=== PATIENT | male | born 1965 | race Caucasian/White ===

== ENCOUNTER 2018-02-04 12:43 | Inpatient (IN) | payer MEDICAID, OTHER ==
[~2018-02-04] VITALS: Ht 188 cm; Wt 119.9 kg
[~2018-02-04 12:43] MED LIST: ASPI81TA82 PO; CARV12.5 PO; FURO1TAB93 OR; LISI-360 PO; SPIR25 PO; WARF5 PO
[2018-02-04] MEDS ORDERED: SODIUM CHLOR 0.9% 1000 ML INJ 1,000 ML IV ONE (13:00)
[2018-02-04 13:09] VITALS: BP 104/69; PULSE 86; RESP 18; TEMP 98.9; O2SAT 96
[2018-02-04 13:13] VITALS: BP 104/69; PULSE 89; RESP 18; TEMP 98.9; O2SAT 96
--- NOTE | 2018-02-04 13:22 | PD ---
HPI Chief Complaint: Syncope/Near-Syncope Time Seen by Provider: 12:52 Travel History International Travel<30 days: No Contact w/Intl Traveler<30days: No Traveled to known affect area: No History of Present Illness HPI 52-year-old male that presents to the ED for evaluation of syncope. Patient was brought here by ambulance for evaluation of this. Per patient he was driving when she started feeling dizzy. He had to stop and when he stopped he sat on a bench and then he started feeling more dizzy and then he actually passed out. He denies any his head and he does not know how long he was out. Per patient he is never had this happen before. He does have a history of A. fib and takes multiple medications for blood pressure as well as A. fib. He does take Coumadin. He denies any headache at this time. Per ambulance he was not able to get up on his own and he did not wanted to come. Per patient has been having cough and congestion for the past 2-3 days and believes that this is the cause of his symptoms. He denies any chest pain or palpitations during this whole ordeal. He does tell me that his blood pressure usually runs low in the 90s systolic and he believes is secondary to his blood pressure medications. He has an allergy to codeine. He denies any pain at this time. No diarrhea. No bowel movement or urinary issues. No shortness of breath with exertion. He cannot stand up without feeling dizzy like is in a pass out. PFSH Past Medical History Hx Anticoagulant Therapy: Yes Atrial Fibrillation: Yes Heart Rhythm Problems: Yes (a-fib within last 3 months) Cardiovascular Problems: Yes High Cholesterol: No Chest Pain: Yes (recently experienced chest pain within last 3 months) Congestive Heart Failure: Yes (within last 3 months) Cerebrovascular Accident: Yes Coronary Artery Disease: Yes Diminished Hearing: No Genitourinary: No Hypertension: Yes Reproductive: No Respiratory: No Tetanus Vaccination: Unknown Influenza Vaccination: No Past Surgical History Abdominal Surgery: Yes (hernia surgery X2) Other Surgery: Yes Social History Alcohol Use: No Tobacco Use: No Substance Use: No Allergies-Medications (Allergen,Severity, Reaction): Coded Allergies: codeine (Unverified Allergy, Severe, Anaphylaxis, 05/28/17) Reported Meds & Prescriptions Reported Meds & Active Scripts Active Review of Systems Except as stated in HPI: all other systems reviewed are Neg Physical Exam Narrative GENERAL: SKIN: Warm and dry. HEAD: Atraumatic. Normocephalic. EYES: Pupils equal and round. No scleral icterus. No injection or drainage. ENT: No nasal bleeding or discharge. Mucous membranes pink and moist. NECK: Trachea midline. No JVD. CARDIOVASCULAR: Regular rate and rhythm. RESPIRATORY: No accessory muscle use. Clear to auscultation. Breath sounds equal bilaterally. GASTROINTESTINAL: Abdomen soft, non-tender, nondistended. Hepatic and splenic margins not palpable. MUSCULOSKELETAL: Extremities without clubbing, cyanosis, or edema. No obvious deformities. NEUROLOGICAL: Awake and alert. No obvious cranial nerve deficits. Motor grossly within normal limits. Five out of 5 muscle strength in the arms and legs. Normal speech. PSYCHIATRIC: Appropriate mood and affect; insight and judgment normal. Data Data Last Documented VS Vital Signs Date Time Temp Pulse Resp B/P (MAP) Pulse Ox O2 Delivery O2 Flow Rate FiO2 02/04/18 14:00 84 12 98/53 (68) 92 22 87/56 (66) 94 27 91/56 (68) 02/04/18 13:16 96 Room Air 02/04/18 13:13 98.9 Orders Orders Electrocardiogram (02/04/18 12:57) Complete Blood Count With Diff (02/04/18 12:57) Comprehensive Metabolic Panel (02/04/18 12:57) Ckmb (Isoenzyme) Profile (02/04/18 12:57) Troponin I (02/04/18 12:57) Prothrombin Time / Inr (Pt) (02/04/18 12:57) Act Partial Throm Time (Ptt) (02/04/18 12:57) Blood Culture (02/04/18 12:57) Lipase (02/04/18 12:57) Urinalysis - C+S If Indicated (02/04/18 12:57) Magnesium (Mg) (02/04/18 12:57) Thyroid Stimulating Hormone (02/04/18 12:57) Chest, Single Ap (02/04/18 12:57) Iv Access Insert/Monitor (02/04/18 12:57) Ecg Monitoring (02/04/18 12:57) Oximetry (02/04/18 12:57) Orthostatic Vital Signs (02/04/18 12:57) Sodium Chlor 0.9% 1000 Ml Inj (Ns 1000 M (02/04/18 13:00) Ct Brain W/O Iv Contrast(Rout) (02/04/18 ) Lactic Acid Sepsis Protocol (02/04/18 13:27) CKMB (02/04/18 13:25) CKMB% (02/04/18 13:25) Ventilation & Perfusion Scan (02/04/18 ) Admit To Inpatient (02/04/18 ) Vital Signs (Adult) Q4H (02/04/18 14:58) Activity Oob With Assistance (02/04/18 14:58) Converting Supervisor / Telemetry .CONTINUOUS (02/04/18 14:58) Diet Npo (02/04/18 Dinner) Sodium Chloride 0.9% Flush (Ns Flush) (02/04/18 15:00) Sodium Chloride 0.9% Flush (Ns Flush) (02/04/18 21:00) Basic Metabolic Panel (Bmp) (02/05/18 06:00) Complete Blood Count With Diff (02/05/18 06:00) Creatine Kinase (Cpk) (02/04/18 19:30) Creatine Kinase (Cpk) (02/05/18 01:30) Troponin I (02/04/18 19:30) Troponin I (02/05/18 01:30) Electrocardiogram (02/04/18 19:30) Electrocardiogram (02/05/18 01:30) Case Management Consult (02/04/18 14:58) Naloxone Inj (Narcan Inj) (02/04/18 15:00) Inpatient Certification (02/04/18 ) Consult Cardiology (02/04/18 ) Admit Order (Ed Use Only) (02/04/18 15:13) Labs Laboratory Tests Test 02/04/18 13:20 02/04/18 13:25 02/04/18 13:52 Urine Color LIGHT-YELLOW Urine Turbidity CLEAR Urine pH 5.5 Urine Specific [place] 1.006 Urine Protein NEG mg/dL Urine Glucose (UA) NEG mg/dL Urine Ketones NEG mg/dL Urine Occult Blood NEG Urine Nitrite NEG Urine Bilirubin NEG Urine Urobilinogen LESS THAN 2.0 MG/DL Urine Leukocyte Esterase NEG Urine RBC LESS THAN 1 /hpf Urine WBC LESS THAN 1 /hpf Urine Hyaline Casts 44 /lpf Urine Mucus FEW /lpf Microscopic Urinalysis Comment CULT NOT INDICATED White Blood Count 5.2 TH/MM3 Red Blood Count 4.36 MIL/MM3 Hemoglobin 14.5 GM/DL Hematocrit 42.5 % Mean Corpuscular Volume 97.4 FL Mean Corpuscular Hemoglobin 33.2 PG Mean Corpuscular Hemoglobin Concent 34.1 % Red Cell Distribution Width 14.8 % Platelet Count 202 TH/MM3 Mean Platelet Volume 10.0 FL Neutrophils (%) (Auto) 67.7 % Lymphocytes (%) (Auto) 13.7 % Monocytes (%) (Auto) 16.7 % Eosinophils (%) (Auto) 1.2 % Basophils (%) (Auto) 0.7 % Neutrophils # (Auto) 3.5 TH/MM3 Lymphocytes # (Auto) 0.7 TH/MM3 Monocytes # (Auto) 0.9 TH/MM3 Eosinophils # (Auto) 0.1 TH/MM3 Basophils # (Auto) 0.0 TH/MM3 CBC Comment DIFF FINAL Differential Comment Prothrombin Time 14.4 SEC Prothromb Time International Ratio 1.4 RATIO Activated Partial Thromboplast Time 31.5 SEC Blood Urea Nitrogen 17 MG/DL Creatinine 1.62 MG/DL Random Glucose 102 MG/DL Total Protein 7.3 GM/DL Albumin 3.5 GM/DL Calcium Level 7.8 MG/DL Magnesium Level 1.9 MG/DL Alkaline Phosphatase 51 U/L Aspartate Amino Transf (AST/SGOT) 31 U/L Alanine Aminotransferase (ALT/SGPT) 25 U/L Total Bilirubin 0.7 MG/DL Sodium Level 139 MEQ/L Potassium Level 3.8 MEQ/L Chloride Level 103 MEQ/L Carbon Dioxide Level 26.6 MEQ/L Anion Gap 9 MEQ/L Estimat Glomerular Filtration Rate 45 ML/MIN Total Creatine Kinase 292 U/L Creatine Kinase MB 3.1 NG/ML Troponin I 0.15 NG/ML Lipase 228 U/L Thyroid Stimulating Hormone 3rd Gen 1.970 uIU/ML Lactic Acid Level 1.2 mmol/L [facility] Medical Decision Making Medical Screen Exam Complete: Yes Emergency Medical Condition: Yes Medical Record Reviewed: Yes Interpretation(s) CBC Diagram 02/04/18 13:25 EKG showed atrial fibrillation but no RVR. Heart rate in 80s. BMP Diagram 02/04/18 13:25 Albumin 3.5, Calcium Level 7.8 L, Magnesium Level 1.9, Aspartate Amino Transf ( AST/SGOT) 31, Alanine Aminotransferase (ALT/SGPT) 25 Last Impressions Chest X-Ray 02/04/18 1257 Signed Impressions: Service Date/Time: Sunday, February 04, 2018 13:00 - CONCLUSION: Chronically enlarged cardiac silhouette. No acute cardiopulmonary disease identified. Zion Lemos MD CT head shows chronic changes per radiology but no acute disease troponin elevated at 0.15 CK WNL UA negative Last Impressions Chest X-Ray 02/04/18 1257 Signed Impressions: Service Date/Time: Sunday, February 04, 2018 13:00 - CONCLUSION: Chronically enlarged cardiac silhouette. No acute cardiopulmonary disease identified. Zion Lemos MD Head CT 02/04/18 0000 Signed Impressions: Service Date/Time: Sunday, February 04, 2018 13:40 - CONCLUSION: 1. Chronic changes with a small, old lacunar type infarct in the right frontal parietal watershed area. 2. Minimal chronic sinusitis in a posterior right ethmoid air cell. 3. Nothing acute Jeremías Denis MD Differential Diagnosis Cardiac syncope versus hypotension versus sepsis versus pneumonia versus syncope versus presyncope Narrative Course 52-year-old male that presents to the ED for evaluation of syncope. Patient was properly examined and was found to have signs and symptoms consistent with syncope. Unclear telemetry at this time. No history of this in the past. Patient was found by ambulance to be slightly hypotensive. Labs and imaging ordered. Labs and imaging showed elevated troponin and otherwise unremarkable disease. Chronic changes noted on CT head. Because of patient's syncope and positive troponin recommendations for admission for further eval. patient agrees with plan. Case was discussed with my attending Dr Chowdary who recommends admission as well. Patient was admitted to Dr. Cochran who agrees to admission. Diagnosis Primary Impression: Syncope Qualified Codes: R55 - Syncope and collapse Additional Impression: Elevated troponin Admitting Information Admitting Physician Requests: Nikos Lau Feb 04, 2018 13:22
--- NOTE | 2018-02-04 13:23 | RADRPT ---
EXAM DATE/TIME: 02/04/2018 13:00 [facility] COMPARISON: CHEST SINGLE AP, January 04, 2016, 12:58. INDICATIONS : Syncope. MEDICAL HISTORY : Congestive heart failure. high blood pressure, atrial fibrillation SURGICAL HISTORY : None. ENCOUNTER: Initial ACUITY: 1 day PAIN SCORE: 0/10 LOCATION: Bilateral chest FINDINGS: 2 AP views of the chest. Cardiac silhouette enlargement unchanged. Lungs are clear. No evidence of pl eural effusion or pneumothorax. CONCLUSION: Chronically enlarged cardiac silhouette. No acute cardiopulmonary disease identified. Zion Lemos MD on February 04, 2018 at 13:20 Board Certified Radiologist. This report was verified electronically.
[2018-02-04 13:46] LABS: AUTOMATED NEUTROPHIL # 3.5 TH/MM3 (1.8-7.7); BASOPHIL % 0.7 % (0.0-2.0); EOSINOPHIL # 0.1 TH/MM3 (0-0.4); EOSINOPHIL % 1.2 % (0.0-4.0); HEMATOCRIT 42.5 % (39.0-51.0); HEMOGLOBIN 14.5 GM/DL (13.0-17.0); LYMPH % 13.7 % (9.0-44.0); LYMPHOCYTE # 0.7 TH/MM3 (1.0-4.8); MEAN CELL VOLUME 97.4 FL (80.0-100.0); MEAN CORPUSCULAR HEMOGLOBIN 33.2 PG (27.0-34.0); MEAN CORPUSCULAR HGB CONC 34.1 % (32.0-36.0); MONO % 16.7 % (0.0-8.0); MONOCYTE # 0.9 TH/MM3 (0-0.9); NEUT % 67.7 % (16.0-70.0); PLATELET COUNT 202 TH/MM3 (150-450); RED BLOOD COUNT 4.36 MIL/MM3 (4.50-5.90); RED CELL DISTRIBUTION WIDTH 14.8 % (11.6-17.2); WHITE BLOOD COUNT 5.2 TH/MM3 (4.0-11.0)
[2018-02-04 13:59] LABS: BILIRUBIN, URINE NEG (NEG); BLOOD, URINE NEG (NEG); GLUCOSE,URINE NEG (NEG); HYALINE CAST, URINE 44 /lpf (RARE); KETONE, URINE NEG (NEG); MUCUS URINE FEW /lpf (OCC); NITRITE,URINE NEG (NEG); PH, URINE 5.5 (5.0-8.5); URINE COLOR LIGHT-YELLOW (YELLW/STRAW); URINE LEUKOCYTE ESTERASE NEG (NEG)
[2018-02-04 14:00] VITALS: BP_SYST 87; BP_SYST 91; BP_SYST 98; BP_DIAS 53; BP_DIAS 56; RESP 12; RESP 22; RESP 27
[2018-02-04 14:03] LABS: ALBUMIN 3.5 GM/DL (3.4-5.0); ALT (GPT) 25 U/L (12-78); AST (GOT) 31 U/L (15-37); BICARBONATE 26.6 MEQ/L (21.0-32.0); BLOOD UREA NITROGEN 17 MG/DL (7-18); CALCIUM 7.8 MG/DL (8.5-10.1); CHLORIDE 103 MEQ/L (98-107); CREATININE 1.62 MG/DL (0.60-1.30); GLOMERULAR FILTRATION RATE 45 ML/MIN (>89); GLUCOSE,RANDOM 102 MG/DL (74-106); INTERNATIONAL NORMALIZED RATIO 1.4 RATIO; MAGNESIUM 1.9 MG/DL (1.5-2.5); PROTHROMBIN TIME - PATIENT 14.4 SEC (9.8-11.6); SODIUM (NA) 139 MEQ/L (136-145)
--- NOTE | 2018-02-04 14:06 | RADRPT ---
EXAM DATE/TIME: 02/04/2018 13:40 [facility] COMPARISON: No previous studies available for comparison. INDICATIONS : Syncope. RADIATION DOSE: 34.40 CTDIvol (mGy) MEDICAL HISTORY : Cardiovascular disease. Hypertension. SURGICAL HISTORY : None. ENCOUNTER: Initial ACUITY: 1 day PAIN SCALE: 0/10 LOCATION: cranial TECHNIQUE: Multiple contiguous axial images were obtained of the head. Using automated exposure control and adjustment of the mA and/or kV according to patient size, radiation dose was kept as low as reasonably achievable to obtain optimal diagnostic quality images. DICOM format image data is av ailable electronically for review and comparison. FINDINGS: CEREBRUM: The ventricles are normal for age. No evidence of midline shift, mass lesion, hemorrha ge or acute infarction. Old lacunar type infarct in the right frontoparietal watershed distribution. No extra-axial fluid collections are seen. POSTERIOR FOSSA: The cerebellum and brainstem are intact. The 4th ventricle is midline. The cer ebellopontine angle is unremarkable. EXTRACRANIAL: The visualized portion of the orbits is intact. Mucoperiosteal thickening isolated to a posterior ethmoid air cell on the right SKULL: The calvaria is intact. No evidence of skull fracture. CONCLUSION: 1. Chronic changes with a small, old lacunar type infarct in the right frontal parietal watershed are a. 2. Minimal chronic sinusitis in a posterior right ethmoid air cell. 3. Nothing acute Jeremías Denis MD on February 04, 2018 at 14:01 Board Certified Radiologist. This report was verified electronically.
[2018-02-04 14:13] LABS: ALKALINE PHOSPHATASE 51 U/L (45-117); TOTAL BILIRUBIN ADULT 0.7 MG/DL (0.2-1.0); TOTAL PROTEIN 7.3 GM/DL (6.4-8.2); TROPONIN I 0.15 NG/ML (0.02-0.05)
[2018-02-04] MEDS ORDERED: NALOXONE HCL 0.4 MG/ML AMP IV PUSH PRN (15:00)
[2018-02-04] MEDS ORDERED: SODIUM CHLORIDE 0.9% FLUSH 10 ML FLUSH IV FLUSH PRN (15:00)
--- NOTE | 2018-02-04 15:50 | HHI.HP ---
HPI Service [facility] Primary Care Physician Bolivar Vasquez DO Admission Diagnosis acute syncope, positive troponin Diagnoses: Travel History International Travel<30 Days: No Contact w/Intl Traveler <30 Da: No Traveled to Known Affected Are: No History of Present Illness History from patient, ER PA communication, and review of medical records woke up this am with no problems drove himself here from [facility] to see his friend denies any symptomswhile driving arrived to friends' [email or web address] parking store- around 1100a.m. he then sat down at table and talking to friend then got up to get a bottle of water, took about 4 steps, got dizzy, and wanted to sit back down, walked back to table, and sat back down, had soda pop and took a sip and thats the last thing he remembered before he got up lying on concrete. this is first time he ever passed out friend came right away then called 911 stated he was aaox4 by the time friend got there, at least 10min before ems, he was back to self denies incontinence little nauseous last few days vomiting a little bit past 2 days , about once or twice, no blood in it no abdominal pains no chest pains or sob on bp meds at home here 91/56 does not really measure regularly, generally 85-90/65 is normal severe cardiomyopathy- EF 20-25% a year ago on echo Review of Systems Except as stated in HPI: all other systems reviewed are Neg Past Family Social History Past Medical History HTN- but with baseline low bp on meds CHF - EF 20-25% by echo in -12/2015 AFib chronic anticoagulation on coumadin Past Surgical History coronary angiogram hernia surgeries- 1978, 1964 at (abdominal wall defect) Reported Medications lisinopril carvedilol coumadin spironolactone l[place] in [facility] [address] Allergies: Coded Allergies: codeine (Unverified Allergy, Severe, Anaphylaxis, 05/28/17) Family History mom side- heart issues dad- lung cancer Social History smokes a pipe, quit 15yrs ago no drinking etoh heavily, usually socially before, none since 2015 no drugs Physical Exam Vital Signs Vital Signs Date Time Temp Pulse Resp B/P (MAP) Pulse Ox O2 Delivery O2 Flow Rate FiO2 02/04/18 14:00 84 12 98/53 (68) 92 22 87/56 (66) 94 27 91/56 (68) 02/04/18 13:16 89 18 96 Room Air 02/04/18 13:13 98.9 89 18 104/69 (81) 96 Room Air 02/04/18 13:13 98.9 89 18 104/69 (81) 96 Room Air 02/04/18 13:09 98.9 86 18 104/69 (81) 96 Physical Exam GENERAL: This is a well-nourished, well-developed patient, in no apparent distress. SKIN: No rashes, ecchymoses or lesions. Cool and dry. HEAD: Atraumatic. Normocephalic. No temporal or scalp tenderness. EYES: No scleral icterus. No injection or drainage. ENT: Nose without bleeding, purulent drainage or septal hematoma. Airway patent. NECK: Trachea midline. No JVD . Supple, nontender, no meningeal signs. CARDIOVASCULAR: Regular rate and rhythm without murmurs, gallops, or rubs. RESPIRATORY: Clear to auscultation. Breath sounds equal bilaterally. No wheezes , rales, or rhonchi. GASTROINTESTINAL: Abdomen soft, non-tender, nondistended.. No guarding. Protuberant abdomen MUSCULOSKELETAL: Extremities without clubbing, cyanosis, or edema. . No calf tenderness NEUROLOGICAL: Awake and alert. Motor and sensory grossly within normal limits. Normal speech. Laboratory Laboratory Tests Test 02/04/18 13:20 02/04/18 13:25 02/04/18 13:52 Urine Color LIGHT-YELLOW Urine Turbidity CLEAR Urine pH 5.5 Urine Specific [place] 1.006 Urine Protein NEG Urine Glucose (UA) NEG Urine Ketones NEG Urine Occult Blood NEG Urine Nitrite NEG Urine Bilirubin NEG Urine Urobilinogen LESS THAN 2.0 Urine Leukocyte Esterase NEG Urine RBC LESS THAN 1 Urine WBC LESS THAN 1 Urine Hyaline Casts 44 Urine Mucus FEW Microscopic Urinalysis Comment CULT NOT INDICATED White Blood Count 5.2 Red Blood Count 4.36 Hemoglobin 14.5 Hematocrit 42.5 Mean Corpuscular Volume 97.4 Mean Corpuscular Hemoglobin 33.2 Mean Corpuscular Hemoglobin Concent 34.1 Red Cell Distribution Width 14.8 Platelet Count 202 Mean Platelet Volume 10.0 Neutrophils (%) (Auto) 67.7 Lymphocytes (%) (Auto) 13.7 Monocytes (%) (Auto) 16.7 Eosinophils (%) (Auto) 1.2 Basophils (%) (Auto) 0.7 Neutrophils # (Auto) 3.5 Lymphocytes # (Auto) 0.7 Monocytes # (Auto) 0.9 Eosinophils # (Auto) 0.1 Basophils # (Auto) 0.0 CBC Comment DIFF FINAL Differential Comment Prothrombin Time 14.4 Prothromb Time International Ratio 1.4 Activated Partial Thromboplast Time 31.5 Blood Urea Nitrogen 17 Creatinine 1.62 Random Glucose 102 Total Protein 7.3 Albumin 3.5 Calcium Level 7.8 Magnesium Level 1.9 Alkaline Phosphatase 51 Aspartate Amino Transf (AST/SGOT) 31 Alanine Aminotransferase (ALT/SGPT) 25 Total Bilirubin 0.7 Sodium Level 139 Potassium Level 3.8 Chloride Level 103 Carbon Dioxide Level 26.6 Anion Gap 9 Estimat Glomerular Filtration Rate 45 Total Creatine Kinase 292 Creatine Kinase MB 3.1 Troponin I 0.15 Lipase 228 Thyroid Stimulating Hormone 3rd Gen 1.970 Lactic Acid Level 1.2 Date/Time Source Procedure Growth Status 02/04/18 13:30 Blood Peripheral Aerobic Blood Culture Pending Received 02/04/18 13:30 Blood Peripheral Anaerobic Blood Culture Pending Received Result Diagram: 02/04/18 1325 02/04/18 1325 Imaging Last 48 hours Impressions Chest X-Ray 02/04/18 1257 Signed Impressions: Service Date/Time: Sunday, February 04, 2018 13:00 - CONCLUSION: Chronically enlarged cardiac silhouette. No acute cardiopulmonary disease identified. Zion Lemos MD Head CT 02/04/18 0000 Signed Impressions: Service Date/Time: Sunday, February 04, 2018 13:40 - CONCLUSION: 1. Chronic changes with a small, old lacunar type infarct in the right frontal parietal watershed area. 2. Minimal chronic sinusitis in a posterior right ethmoid air cell. 3. Nothing acute MD Mat Perez VTE Risk Assessment Caprini VTE Risk Assessment: Mod/High Risk (score >= 2) Caprini Risk Assessment Model Point Value = 1 Point Value = 2 Point Value = 3 Point Value = 5 Age 41-60 Minor surgery BMI > 25 kg/m2 Swollen legs Varicose veins or History of unexplained or recurrent spontaneous Oral contraceptives or hormone replacement Sepsis (< 1 month) Serious lung disease, including pneumonia (< 1 month) Abnormal pulmonary function Acute myocardial infarction Congestive heart failure (< 1 month) History of inflammatory bowel disease Medical patient at bed rest Age 61-74 Arthroscopic surgery Major open surgery (> 45 min) Laparoscopic surgery (> 45 min) Malignancy Confined to bed (> 72 hours) Immobilizing plaster cast Central venous access Age >= 75 History of VTE Family history of VTE Factor V Leiden Prothrombin [id number] Lupus anticoagulant Anticardiolipin antibodies Elevated serum homocysteine Heparin-induced thrombocytopenia Other congenital or acquired thrombophilia Stroke (< 1 month) Elective arthroplasty Hip, pelvis, or leg fracture Acute spinal cord injury (< 1 month) Prophylaxis Regimen Total Risk Factor Score Risk Level Prophylaxis Regimen 0-1 Low Early ambulation 2 Moderate Order ONE of the following: *Sequential Compression Device (SCD) *Heparin 5000 units SQ BID 3-4 Higher Order ONE of the following medications: *Heparin 5000 units SQ TID *Enoxaparin/Lovenox 40 mg SQ daily (WT < 150 kg, CrCl > 30 mL/min) *Enoxaparin/Lovenox 30 mg SQ daily (WT < 150 kg, CrCl > 10-29 mL/min) *Enoxaparin/Lovenox 30 mg SQ BID (WT < 150 kg, CrCl > 30 mL/min) AND/OR *Sequential Compression Device (SCD) 5 or more Highest Order ONE of the following medications: *Heparin 5000 units SQ TID (Preferred with Epidurals) *Enoxaparin/Lovenox 40 mg SQ daily (WT < 150 kg, CrCl > 30 mL/min) *Enoxaparin/Lovenox 30 mg SQ daily (WT < 150 kg, CrCl > 10-29 mL/min) *Enoxaparin/Lovenox 30 mg SQ BID (WT < 150 kg, CrCl > 30 mL/min) AND *Sequential Compression Device (SCD) Assessment and Plan Assessment and Plan Impression: Syncope. Possible vasovagal/orthostatics versus cardiogenic. Elevated troponin. Rule out ACS. Hypotension. Reports of chronic hypertension while on antihypertensives. No recent change in medications. Possibly also with GI loss from vomiting/ dehydration/diuretics. High risk for cardiac dysrhythmia. Given the patient with EF of 20%, question whether or V. tach episodes were the cause of his syncope. Subtherapeutic INR Acute renal failure Vomiting in past 2 days. Without abdominal pains. Question whether this is related to ACS. Severe cardiomyopathy.EF of 20% in December 2015. Does not have AICD due to his refusal. Chronic A. fib Plan: Serial cardiac enzymes and EKGs. Echocardiogram. Carotid sono. Telemetry monitoring. Head CT personally reviewed. No evidence of pneumothorax/pleural effusion/ infiltrates. VQ scan stat as patient has subtherapeutic INR and also reports of frequent prolonged driving back and forth between [place] in here. P.o. hydration. We will hold lisinopril. Cardiology consult. Patient is also counseled regarding AICD placement. Heparin drip for anticoagulation. Obtain patient's medications list from [facility] in [place]. DVT prophylaxis on heparin drip. We will need to restart on Coumadin based on the above findings and further workup. Discussed Condition With Patient, ER PA, nursing staff James Cochran MD Feb 04, 2018 15:50
--- NOTE | 2018-02-04 16:09 | PD ---
Physical Exam Narrative GENERAL: 52-year-old male in no apparent distress SKIN: Focused skin assessment warm/dry. HEAD: Atraumatic. Normocephalic. EYES: Pupils equal and round. No scleral icterus. No injection or drainage. ENT: No nasal bleeding or discharge. Mucous membranes pink and moist. NECK: Trachea midline. CARDIOVASCULAR: Regular rate and rhythm. RESPIRATORY: No accessory muscle use. no increased effort GASTROINTESTINAL: Abdomen soft, non-tender, nondistended. MUSCULOSKELETAL: No obvious deformities. No clubbing. No cyanosis. NEUROLOGICAL: Awake and alert. moves all extremities. Normal speech. Data Data Last Documented VS Vital Signs Date Time Temp Pulse Resp B/P (MAP) Pulse Ox O2 Delivery O2 Flow Rate FiO2 02/04/18 14:00 84 12 98/53 (68) 92 22 87/56 (66) 94 27 91/56 (68) 02/04/18 13:16 96 Room Air 02/04/18 13:13 98.9 Orders Orders Electrocardiogram (02/04/18 12:57) Complete Blood Count With Diff (02/04/18 12:57) Comprehensive Metabolic Panel (02/04/18 12:57) Ckmb (Isoenzyme) Profile (02/04/18 12:57) Troponin I (02/04/18 12:57) Prothrombin Time / Inr (Pt) (02/04/18 12:57) Act Partial Throm Time (Ptt) (02/04/18 12:57) Blood Culture (02/04/18 12:57) Lipase (02/04/18 12:57) Urinalysis - C+S If Indicated (02/04/18 12:57) Magnesium (Mg) (02/04/18 12:57) Thyroid Stimulating Hormone (02/04/18 12:57) Chest, Single Ap (02/04/18 12:57) Iv Access Insert/Monitor (02/04/18 12:57) Ecg Monitoring (02/04/18 12:57) Oximetry (02/04/18 12:57) Orthostatic Vital Signs (02/04/18 12:57) Sodium Chlor 0.9% 1000 Ml Inj (Ns 1000 M (02/04/18 13:00) Ct Brain W/O Iv Contrast(Rout) (02/04/18 ) Lactic Acid Sepsis Protocol (02/04/18 13:27) CKMB (02/04/18 13:25) CKMB% (02/04/18 13:25) Ventilation & Perfusion Scan (02/04/18 ) Admit To Inpatient (02/04/18 ) Vital Signs (Adult) Q4H (02/04/18 14:58) Activity Oob With Assistance (02/04/18 14:58) Chemical Analyst / Telemetry .CONTINUOUS (02/04/18 14:58) Diet Npo (02/04/18 Dinner) Sodium Chloride 0.9% Flush (Ns Flush) (02/04/18 15:00) Sodium Chloride 0.9% Flush (Ns Flush) (02/04/18 21:00) Basic Metabolic Panel (Bmp) (02/05/18 06:00) Complete Blood Count With Diff (02/05/18 06:00) Creatine Kinase (Cpk) (02/04/18 19:30) Creatine Kinase (Cpk) (02/05/18 01:30) Troponin I (02/04/18 19:30) Troponin I (02/05/18 01:30) Electrocardiogram (02/04/18 19:30) Electrocardiogram (02/05/18 01:30) Case Management Consult (02/04/18 14:58) Naloxone Inj (Narcan Inj) (02/04/18 15:00) Inpatient Certification (02/04/18 ) Consult Cardiology (02/04/18 ) Admit Order (Ed Use Only) (02/04/18 15:13) Labs Laboratory Tests Test 02/04/18 13:20 02/04/18 13:25 02/04/18 13:52 Urine Color LIGHT-YELLOW Urine Turbidity CLEAR Urine pH 5.5 Urine Specific [place] 1.006 Urine Protein NEG mg/dL Urine Glucose (UA) NEG mg/dL Urine Ketones NEG mg/dL Urine Occult Blood NEG Urine Nitrite NEG Urine Bilirubin NEG Urine Urobilinogen LESS THAN 2.0 MG/DL Urine Leukocyte Esterase NEG Urine RBC LESS THAN 1 /hpf Urine WBC LESS THAN 1 /hpf Urine Hyaline Casts 44 /lpf Urine Mucus FEW /lpf Microscopic Urinalysis Comment CULT NOT INDICATED White Blood Count 5.2 TH/MM3 Red Blood Count 4.36 MIL/MM3 Hemoglobin 14.5 GM/DL Hematocrit 42.5 % Mean Corpuscular Volume 97.4 FL Mean Corpuscular Hemoglobin 33.2 PG Mean Corpuscular Hemoglobin Concent 34.1 % Red Cell Distribution Width 14.8 % Platelet Count 202 TH/MM3 Mean Platelet Volume 10.0 FL Neutrophils (%) (Auto) 67.7 % Lymphocytes (%) (Auto) 13.7 % Monocytes (%) (Auto) 16.7 % Eosinophils (%) (Auto) 1.2 % Basophils (%) (Auto) 0.7 % Neutrophils # (Auto) 3.5 TH/MM3 Lymphocytes # (Auto) 0.7 TH/MM3 Monocytes # (Auto) 0.9 TH/MM3 Eosinophils # (Auto) 0.1 TH/MM3 Basophils # (Auto) 0.0 TH/MM3 CBC Comment DIFF FINAL Differential Comment Prothrombin Time 14.4 SEC Prothromb Time International Ratio 1.4 RATIO Activated Partial Thromboplast Time 31.5 SEC Blood Urea Nitrogen 17 MG/DL Creatinine 1.62 MG/DL Random Glucose 102 MG/DL Total Protein 7.3 GM/DL Albumin 3.5 GM/DL Calcium Level 7.8 MG/DL Magnesium Level 1.9 MG/DL Alkaline Phosphatase 51 U/L Aspartate Amino Transf (AST/SGOT) 31 U/L Alanine Aminotransferase (ALT/SGPT) 25 U/L Total Bilirubin 0.7 MG/DL Sodium Level 139 MEQ/L Potassium Level 3.8 MEQ/L Chloride Level 103 MEQ/L Carbon Dioxide Level 26.6 MEQ/L Anion Gap 9 MEQ/L Estimat Glomerular Filtration Rate 45 ML/MIN Total Creatine Kinase 292 U/L Creatine Kinase MB 3.1 NG/ML Troponin I 0.15 NG/ML Lipase 228 U/L Thyroid Stimulating Hormone 3rd Gen 1.970 uIU/ML Lactic Acid Level 1.2 mmol/L [facility] Supervised Visit with DENISE: Yes Interpretation(s) CBC & BMP Diagram 02/04/18 13:25 Total Protein 7.3, Albumin 3.5, Calcium Level 7.8 L, Magnesium Level 1.9, Alkaline Phosphatase 51, Aspartate Amino Transf (AST/SGOT) 31, Alanine Aminotransferase (ALT/SGPT) 25, Total Bilirubin 0.7 Last 24 hours Impressions Chest X-Ray 02/04/18 1257 Signed Impressions: Service Date/Time: Sunday, February 04, 2018 13:00 - CONCLUSION: Chronically enlarged cardiac silhouette. No acute cardiopulmonary disease identified. Zion Lemos MD Head CT 02/04/18 0000 Signed Impressions: Service Date/Time: Sunday, February 04, 2018 13:40 - CONCLUSION: 1. Chronic changes with a small, old lacunar type infarct in the right frontal parietal watershed area. 2. Minimal chronic sinusitis in a posterior right ethmoid air cell. 3. Nothing acute Jeremías Denis MD Narrative Course I, Dr. beck, have reviewed the advance practice practitioner's documentation and am in agreement, met with the patient face to face, made the diagnosis, and the medical decision making was done by me. *My assessment and Findings: 52-year-old male status post syncopal event. He is subtherapeutic on his Coumadin. He will be admitted for further care To workup for PE versus cardiac event. Patient agrees to plan Diagnosis Primary Impression: Syncope Qualified Codes: R55 - Syncope and collapse Additional Impression: Elevated troponin Admitting Information Admitting Physician Requests: Observation Nicole Beck MD Feb 04, 2018 16:09
[2018-02-04] MEDS ORDERED: HEPARIN SODIUM - IV 10,000 UNITS/10 ML VIAL IV PUSH ONE (16:15)
--- NOTE | 2018-02-04 16:44 | RADRPT ---
EXAM DATE/TIME: 02/04/2018 15:38 [facility] COMPARISON: CHEST SINGLE AP, February 04, 2018, 13:00. INDICATIONS : Syncope. DOSE: 1.1 mCi Tc99m MAA IV 32.5 mCi Tc99m DTPA aerosol MEDICAL HISTORY : Congestive heart failure. Stroke Hypertension. Atrial fibrillation. SURGICAL HISTORY : Inguinal hernia repair. ENCOUNTER: Initial ACUITY: 1 day PAIN SCALE: 0/10 LOCATION: chest TECHNIQUE: Following five minutes of tidal breathing of DTPA aerosol, planar images of the lungs were performed in eight projections. The patient was then injected with MAA, and eight-view perfusion scan was perf ormed. FINDINGS: There is a homogeneous pattern of aerosol delivery to the periphery of both lungs. No focal ventilat ory defects are seen. Prominent cardiac silhouette. The perfusion lung scan demonstrates a homogenous pattern of uptake in both lungs. No segmental or s ubsegmental defects are seen. Prominent cardiac silhouette CONCLUSION: 1. No scintigraphic findings of pulmonary embolus. 2. Cardiomegaly. Jeremías Denis MD on February 04, 2018 at 16:33 Board Certified Radiologist. This report was verified electronically.
[2018-02-04 17:16] VITALS: BP 170/91; PULSE 87; RESP 18; TEMP 99; O2SAT 96
[2018-02-04 17:45] VITALS: BP 110/73; PULSE 58
--- NOTE | 2018-02-04 18:58 | RADRPT ---
EXAM DATE/TIME: 02/04/2018 16:45 [facility] COMPARISON: No previous studies available for comparison. INDICATIONS : Syncope. MEDICAL HISTORY : Hypertension. Congestive heart failure. AFib. SURGICAL HISTORY : Coronary Angiogram. Hernia surgeries. ENCOUNTER: Initial ACUITY: 1 day PAIN SCORE: 0/10 LOCATION: Bilateral neck PEAK SYSTOLIC VELOCITIES (cm/sec): ICA/CCA RATIO: Right: 1.0 Left: 0.7 ICA: Right: 121 Left: 92 CCA: Right: 115 Left: 130 ECA: Right: 155 Left: 111 VERTEBRAL: Right: 49 antegrade Left: 41 antegrade Elevated flow velocities and ICA/CCA ratios have been found to correlate with increased degrees of vessel stenosis, calculated as percentage of diameter relative to a normal segment of distal ICA/CCA FINDINGS: RIGHT CAROTID: Trace plaque at the bulb and proximal internal carotid artery. No significant stenosis is visualized. The waveforms are within normal limits. LEFT CAROTID: Trace plaque of the bulb and proximal internal carotid artery. No significant stenosis is visualized. The waveforms are within normal limits. VERTEBRAL ARTERIES: Antegrade flow is seen in both vertebral arteries. MISCELLANEOUS: None. CONCLUSION: Minimal atherosclerotic plaque of both carotid bifurcations. No narrowing. Roel Maloney MD on February 04, 2018 at 18:55 Board Certified Radiologist. This report was verified electronically.
[2018-02-04] MEDS: SODIUM CHLORIDE 0.9% FLUSH 10 ML FLUSH IV FLUSH SCH (19:56)
[2018-02-04 20:00] VITALS: BP 97/62; PULSE 101; PULSE 97; RESP 20; TEMP 98.7; O2SAT 93
[2018-02-04] MEDS: HEPARIN-D5W 25,000 U/250 ML 250 ML IV PRN (20:06)
[2018-02-04 21:10] LABS: TROPONIN I 0.17 NG/ML (0.02-0.05)
[2018-02-04] MEDS ORDERED: HEPARIN SODIUM - IV 10,000 UNITS/10 ML VIAL IV PUSH PRN ×2 (22:15)
--- NOTE | 2018-02-04 23:40 | MB ---
cc: Naldo Kaye DO DATE: 02/04/2018 REASON FOR CONSULTATION: Syncope, elevated troponin. HISTORY OF PRESENT ILLNESS: Camden Medrano is a pleasant 52-year-old male who presented to [facility] after a syncopal episode. Over the past few days, he has been nauseous, vomiting 1-2 times per day. He denies abdominal pain, chest pain or shortness of breath with the episodes. He drove down from [place] to see a friend. After sitting with him, he had a heated debate for a few minutes with him and started feeling considerably thirsty. He got up, took 4 steps, started getting dizzy and went to sit back down and as he was sitting back down apparently he syncopized. Per the patient, he felt like he sat back down, but per his friend, he was attempting to sit down and syncopized at that time. 911 was called. During the episode, he had no incontinence or shaking. When he did come to a few seconds later, he was not neurologically compromised or confused. While in the emergency room, he was noted to have a blood pressure as low as 90/50. In seeing him, he is currently hemodynamically stable with no chest pain, shortness of breath or palpitations. He states that he had no chest pain, shortness of breath or palpitations before or after the syncopal episode. PAST MEDICAL HISTORY: 1. Nonischemic cardiomyopathy with an ejection fraction of 20% to 25%. 2. History of hypertension. 3. Atrial fibrillation on chronic anticoagulation with Coumadin. PAST SURGICAL HISTORY: 1. Coronary angiogram, which per the patient was around 2013, for which he states he had normal coronary arteries. 2. Hernia surgery due to abdominal wall defect at . ALLERGIES: CODEINE. MEDICATIONS: 1. Lisinopril. 2. Coreg. 3. Coumadin. 4. Spironolactone. FAMILY HISTORY: Dad had lung cancer. Denies sudden cardiac within the family. SOCIAL HISTORY: The patient previously smoked a pipe but quit 15 years ago. Drinks socially previously, but has not drank since 2016. Denies drug abuse. REVIEW OF SYSTEMS: Fourteen systems were reviewed including osteopathic. Pertinent positives and negatives above, otherwise negative. PHYSICAL EXAMINATION: VITAL SIGNS: Temperature 98.7, heart rate 97, blood pressure 97/62, respirations 20, pulse oximetry 93% on room air. GENERAL: The patient appears well in no acute distress, alert, awake and oriented x 3. HEENT: Extraocular muscles intact. Mucous membranes moist. NECK: Supple. No JVD at 45 degrees. No carotid bruits heard bilaterally. Carotid upstroke is brisk in nature. HEART: Regular rate and rhythm. Positive first and second heart sounds with no noted murmurs, gallops or rubs. LUNGS: Clear to auscultation bilaterally. No wheezes, rales or rhonchi. ABDOMEN: Soft, nontender, nondistended, no organomegaly noted. EXTREMITIES: Show no clubbing, cyanosis or edema. Femoral and distal pulses are intact bilaterally. NEUROLOGIC: No focal deficits. SKIN: Warm, dry and intact. OSTEOPATHIC: No kyphoscoliosis, lordosis or paraspinal tender points. LABORATORY DATA: Hemoglobin 14.5, hematocrit 42.5, platelets 202. Potassium 3.8, BUN 17, creatinine 1.62, troponin 0.15 increasing to 0.17. Electrocardiogram (02/04/2018 at 2128), atrial fibrillation, left bundle branch block. No significant change from previous. IMPRESSIONS: 1. Syncopal episode. 2. Minimally elevated troponin. 3. Nonischemic cardiomyopathy. 4. Atrial fibrillation. RECOMMENDATIONS: 1. Mr. Medrano appears to have had a syncopal episode and this is most likely a combination of things including dehydration from vomiting, his nonischemic cardiomyopathy, antihypertensive medications as well as orthostatic hypotension due to standing. 2. He came in significantly dehydrated and has since received Fluid resuscitation gently due to his nonischemic cardiomyopathy. 3. He does have minimally elevated troponins, although this is relatively nonspecific as they are flat in the face of his dehydration and acute kidney injury. 4. Overall, he previously did have an episode of elevated troponins, which was not worked up further at that time. We will keep him n.p.o. and plan on stress testing him in the morning. 5. There is always a possibility that this was arrhythmogenic in nature, although difficult to tell. In speaking to Mr. Medrano, he apparently was recommended an ICD per his global director air and climate change, Dr. Ricardo Mazariegos. He had previously refused, but has considered it and this can be reevaluated by his global director air and climate change upon discharge unless arrhythmias are noted on telemetry. 6. Overall, I do not believe this syncopal episode was due to arrhythmia, more than likely multifactorial as above. 7. Further recommendations will be made based on the hospital course. Thank you for allowing me to see Camden Medrano. If there are any questions, please do not hesitate to call. Naldo Kaye DO VGP/rt , 10:55 PM , 11:38 PM
[2018-02-05] VITALS (10 sets, daily range): BP systolic 108–143; BP diastolic 62–88; PULSE 61–128; RESP 18–20; TEMP 98.1–99.3; O2SAT 94
[2018-02-05 01:50] LABS: AUTOMATED NEUTROPHIL # 3.4 TH/MM3 (1.8-7.7); BASOPHIL % 0.3 % (0.0-2.0); EOSINOPHIL # 0.1 TH/MM3 (0-0.4); EOSINOPHIL % 0.9 % (0.0-4.0); HEMATOCRIT 40.1 % (39.0-51.0); HEMOGLOBIN 13.6 GM/DL (13.0-17.0); LYMPH % 25.1 % (9.0-44.0); LYMPHOCYTE # 1.4 TH/MM3 (1.0-4.8); MEAN CELL VOLUME 98.6 FL (80.0-100.0); MEAN CORPUSCULAR HEMOGLOBIN 33.4 PG (27.0-34.0); MEAN CORPUSCULAR HGB CONC 33.8 % (32.0-36.0); MEAN PLATELET VOLUME 10.2 FL (7.0-11.0); MONO % 15.1 % (0.0-8.0); MONOCYTE # 0.9 TH/MM3 (0-0.9); NEUT % 58.6 % (16.0-70.0); PLATELET COUNT 175 TH/MM3 (150-450); RED BLOOD COUNT 4.06 MIL/MM3 (4.50-5.90); RED CELL DISTRIBUTION WIDTH 14.2 % (11.6-17.2); WHITE BLOOD COUNT 5.8 TH/MM3 (4.0-11.0)
[2018-02-05 01:55] LABS: BICARBONATE 25.3 MEQ/L (21.0-32.0); CALCIUM 7.9 MG/DL (8.5-10.1); CREATININE 1.51 MG/DL (0.60-1.30)
[2018-02-05 01:59] LABS: TROPONIN I 0.26 NG/ML (0.02-0.05)
[2018-02-05] MEDS: SODIUM CHLORIDE 0.9% FLUSH 10 ML FLUSH IV FLUSH SCH ×2 (07:17→21:00)
[2018-02-05] MEDS ORDERED: POTASSIUM CHLORIDE 20 MEQ CONTROLLED RELEASE TAB PO ONE (08:00)
--- NOTE | 2018-02-05 08:49 | EKG ---
Date Performed: 02/05/2018 Time Performed: 00:51:22 PTAGE: 52 years EKG: Atrial fibrillation with rapid ventricular response. Left bundle branch block Abnormal ECG PREVIOUS TRACING : 02/04/2018 21.28 DOCTOR: Miko Westfall Interpretating Date/Time 02/05/2018 08:48:02
--- NOTE | 2018-02-05 09:01 | EKG ---
Date Performed: 02/04/2018 Time Performed: 21:28:56 PTAGE: 52 years EKG: ATRIAL FIBRILLATION LEFT BUNDLE BRANCH BLOCK ABNORMAL ECG PREVIOUS TRACING : 02/04/2018 13.12 DOCTOR: Miko Westfall Interpretating Date/Time 02/05/2018 09:00:17
--- NOTE | 2018-02-05 09:40 | EKG ---
Date Performed: 02/04/2018 Time Performed: 13:12:00 PTAGE: 52 years EKG: ATRIAL FIBRILLATION LEFT BUNDLE BRANCH BLOCK ABNORMAL ECG PREVIOUS TRACING : 01/04/2016 12.13 DOCTOR: Miko Westfall Interpretating Date/Time 02/05/2018 09:39:16
--- NOTE | 2018-02-05 13:58 | HHI.PR ---
Subjective Remarks Follow-up syncope. No recurrence. Denies chest pain, shortness of breath and palpitations. Patient for echocardiogram and stress test discussed with nursing Objective Vitals Vital Signs Date Time Temp Pulse Resp B/P (MAP) Pulse Ox O2 Delivery O2 Flow Rate FiO2 02/05/18 12:08 98.9 92 18 139/75 (96) 94 02/05/18 08:26 Room Air 02/05/18 08:03 98.1 83 19 123/69 (87) 94 02/05/18 07:48 128 02/05/18 04:00 122 02/05/18 04:00 99.3 100 18 112/81 (91) 94 02/05/18 00:00 98.5 61 20 108/62 (77) 94 02/05/18 00:00 Room Air 02/05/18 00:00 101 02/04/18 21:00 Room Air 02/04/18 20:00 101 02/04/18 20:00 98.7 97 20 97/62 (74) 93 02/04/18 17:45 58 110/73 (85) 02/04/18 17:16 170/91 (117) 02/04/18 17:16 99.0 87 18 170/91 (117) 96 Room Air 02/04/18 14:00 84 12 98/53 (68) 92 22 87/56 (66) 94 27 91/56 (68) I/O 02/04/18 02/04/18 02/04/18 02/05/18 02/05/18 02/05/18 07:00 15:00 23:00 07:00 15:00 23:00 Intake Total 1000 ml 240 ml Balance 1000 ml 240 ml Intake Oral 240 ml IV Total 1000 ml # Voids 5 Result Diagram: 02/05/18 0123 02/05/18 0123 Imaging Last Impressions Chest X-Ray 02/04/18 1257 Signed Impressions: Service Date/Time: Sunday, February 04, 2018 13:00 - CONCLUSION: Chronically enlarged cardiac silhouette. No acute cardiopulmonary disease identified. Zion Lemos MD Lung Scan- Nuclear Medicine 02/04/18 0000 Signed Impressions: Service Date/Time: Sunday, February 04, 2018 15:38 - CONCLUSION: 1. No scintigraphic findings of pulmonary embolus. 2. Cardiomegaly. Jeremías Denis MD Head CT 02/04/18 0000 Signed Impressions: Service Date/Time: Sunday, February 04, 2018 13:40 - CONCLUSION: 1. Chronic changes with a small, old lacunar type infarct in the right frontal parietal watershed area. 2. Minimal chronic sinusitis in a posterior right ethmoid air cell. 3. Nothing acute Jeremías Denis MD Carotid Artery Ultrasound 02/04/18 0000 Signed Impressions: Service Date/Time: Sunday, February 04, 2018 16:45 - CONCLUSION: Minimal atherosclerotic plaque of both carotid bifurcations. No narrowing. Roel Maloney MD Objective Remarks GENERAL: This is a well-nourished, obese patient, in no apparent distress. SKIN: No rashes, ecchymoses or lesions. Cool and dry. CARDIOVASCULAR: Regular rate and rhythm without murmurs, gallops, or rubs. RESPIRATORY: Clear to auscultation. Breath sounds equal bilaterally. No wheezes , rales, or rhonchi. GASTROINTESTINAL: Abdomen soft, non-tender, nondistended.. No guarding. Protuberant abdomen MUSCULOSKELETAL: Extremities without clubbing, cyanosis, or edema. . No calf tenderness NEUROLOGICAL: Awake and alert. Motor and sensory grossly within normal limits. Normal speech. Procedures none A/P Problem List: (1) Syncope ICD Code: R55 - Syncope and collapse Status: Acute Assessment and Plan Syncope, multifactorial likely a combination of dehydration from vomiting, his nonischemic cardiomyopathy, antihypertensive medications as well as orthostatic hypotension due to standing. Improved with hydration. Minimally elevated troponins in the setting of acute kidney injury. For stress test today Hypotension. Reports of chronic hypertension while on antihypertensives. No recent change in medications. Possibly also with GI loss from vomiting/ dehydration/diuretics. Improved High risk for cardiac dysrhythmia. Given the patient with EF of 20%, question whether or V. tach episodes were the cause of his syncope. Patient to discuss with his headstart teacher regarding AICD Subtherapeutic INR with history of A. fib. Continue IV heparin and restart Coumadin. Acute renal failure secondary to dehydration from vomiting. Improving. Continue to monitor avoid nephrotoxins DVT prophylaxis on heparin drip. We will need to restart on Coumadin based on the above findings and further workup. Problem Qualifiers (1) Syncope: Qualified Codes: R55 - Syncope and collapse Greg Fisher MD Feb 05, 2018 13:58
[2018-02-05] MEDS ORDERED: SENNOSIDES 8.6 MG TAB PO PRN (14:15)
[2018-02-05] MEDS ORDERED: ONDANSETRON HCL 4 MG/2 ML VIAL IVP PRN (14:15)
[2018-02-05] MEDS ORDERED: LACTULOSE SYRUP 20 GM/30 ML CUP PO PRN (14:15)
[2018-02-05] MEDS ORDERED: ACETAMINOPHEN 325 MG TAB PO PRN ×2 (14:15)
[2018-02-05] MEDS ORDERED: BISACODYL 10 MG SUPP RECTAL PRN (14:15)
[2018-02-05] MEDS ORDERED: NALOXONE HCL 0.4 MG/ML AMP IV PUSH PRN (14:15)
--- NOTE | 2018-02-05 18:43 | ECHRPT ---
Indication: Heart Failure CONCLUSIONS The left ventricular systolic function is severely reduced with an estimated ejection fraction less than 20%. possible lv thrombus in apex, @ 10x10 mm, globular appearing, well circumscribed There is global left ventricular dysfunction. Wall thickness is measured at the upper limits of normal. Severely dilated left ventricle. The left atrial size is moderately dilated. Mitral annular calcification is present. [id number] mitral valve regurgitation. Trace aortic valve regurgitation. There is mild to moderate tricuspid valve regurgitation. The estimated pulmonary arterial pressure is 49 mmHg. BP: 112 / 81 HR: 100 Rhythm: Technical Quality:Technically difficult study FINDINGS LEFT VENTRICLE The left ventricular systolic function is severely reduced with an estimated ejection fraction less than 20%. There is global left ventricular dysfunction. Wall thickness is measured at the upper limits of normal. Severely dilated left ventricle. RIGHT VENTRICLE Normal right ventricular size and systolic function. LEFT ATRIUM The left atrial size is moderately dilated. RIGHT ATRIUM The right atrial size is normal. ATRIAL SEPTUM Normal atrial septal thickness without atrial level shunting by limited color doppler interrogation. AORTA The aortic root and proximal ascending aorta are normal in size on limited imaging. MITRAL VALVE Mitral annular calcification is present. [id number] mitral valve regurgitation. AORTIC VALVE Trileaflet aortic valve. Trace aortic valve regurgitation. TRICUSPID VALVE Structurally normal tricuspid valve. There is mild to moderate tricuspid valve regurgitation. The estimated pulmonary arterial pressure is 49 mmHg. PULMONARY VALVE No pulmonary valve regurgitation or stenosis. VESSELS The inferior vena cava is normal in size. PERICARDIUM No pericardial effusion. Dagoberto Flowers MD, FACC, [facility] (Electronically Signed) Final Date:05 February 2018 18:41
[2018-02-05] MEDS: HEPARIN-D5W 25,000 U/250 ML 250 ML IV PRN (18:46)
[2018-02-05] MEDS: DOCUSATE SODIUM 50 MG/SENNA 8.6 MG TAB PO SCH (21:00)
[2018-02-05] MEDS: CARVEDILOL 12.5 MG TAB PO SCH (21:52)
--- NOTE | 2018-02-05 22:15 | PD.CARD.PN ---
Subjective Subjective Remarks Patient was seen earlier this afternoon, late entry note No complaints, no CP/SOB/lightheadedness Objective Medications Current Medications Medications (Trade) Dose Ordered Sig/Neema Route Start Time Stop Time Status Last Admin (NS Flush) 2 ml UNSCH PRN IV FLUSH 02/04/18 15:00 (NS Flush) 2 ml BID IV FLUSH 02/04/18 21:00 02/05/18 07:17 (Narcan Inj) 0.4 mg UNSCH PRN IV PUSH 02/04/18 15:00 (Heparin Inj) 5,000 units UNSCH PRN IV PUSH 02/04/18 22:15 (Heparin Inj) 2,500 units UNSCH PRN IV PUSH 02/04/18 22:15 Heparin Sodium/ Dextrose 250 ml @ 10 mls/hr TITRATE PRN IV 02/04/18 19:00 02/05/18 18:46 (Coreg) 12.5 mg Q12HR PO 02/05/18 21:00 02/05/18 21:52 (Tylenol) 650 mg Q4H PRN PO 02/05/18 14:15 (Zofran Inj) 4 mg Q6H PRN IVP 02/05/18 14:15 (Tylenol) 650 mg Q6H PRN PO 02/05/18 14:15 (Traci-Colace) 1 tab BID PO 02/05/18 21:00 (Senokot) 17.2 mg Q12H PRN PO 02/05/18 14:15 (Dulcolax Supp) 10 mg DAILY PRN RECTAL 02/05/18 14:15 (Lactulose Liq) 30 ml DAILY PRN PO 02/05/18 14:15 Vital Signs / I&O Vital Signs Date Time Temp Pulse Resp B/P (MAP) Pulse Ox O2 Delivery O2 Flow Rate FiO2 02/05/18 16:03 99.0 107 18 129/74 (92) 94 02/05/18 15:48 107 02/05/18 12:08 98.9 92 18 139/75 (96) 94 02/05/18 11:44 99 02/05/18 08:26 Room Air 02/05/18 08:03 98.1 83 19 123/69 (87) 94 02/05/18 07:48 128 02/05/18 04:00 122 02/05/18 04:00 99.3 100 18 112/81 (91) 94 02/05/18 00:00 98.5 61 20 108/62 (77) 94 02/05/18 00:00 Room Air 02/05/18 00:00 101 I/O 02/04/18 02/04/18 02/04/18 02/05/18 02/05/18 02/05/18 07:00 15:00 23:00 07:00 15:00 23:00 Intake Total 1000 ml 240 ml 360 ml Balance 1000 ml 240 ml 360 ml Intake Oral 240 ml 360 ml IV Total 1000 ml # Voids 5 4 # Bowel Movements 1 Physical Exam GENERAL: NAD, AAOx3 SKIN: Warm and dry. HEAD: Atraumatic. Normocephalic. EYES: Pupils equal and round. No scleral icterus. No injection or drainage. ENT: No nasal bleeding or discharge. Mucous membranes pink and moist. NECK: Trachea midline. No JVD. CARDIOVASCULAR: Regular rate and rhythm. RESPIRATORY: No accessory muscle use. Clear to auscultation. Breath sounds equal bilaterally. GASTROINTESTINAL: Abdomen soft, non-tender, nondistended. Hepatic and splenic margins not palpable. MUSCULOSKELETAL: Extremities without clubbing, cyanosis, or edema. No obvious deformities. NEUROLOGICAL: Awake and alert. No obvious cranial nerve deficits. Motor grossly within normal limits. Five out of 5 muscle strength in the arms and legs. Normal speech. PSYCHIATRIC: Appropriate mood and affect; insight and judgment normal. Laboratory Laboratory Tests Test 02/05/18 01:23 02/05/18 02:36 02/05/18 04:28 02/05/18 11:30 White Blood Count 5.8 TH/MM3 Red Blood Count 4.06 MIL/MM3 Hemoglobin 13.6 GM/DL Hematocrit 40.1 % Mean Corpuscular Volume 98.6 FL Mean Corpuscular Hemoglobin 33.4 PG Mean Corpuscular Hemoglobin Concent 33.8 % Red Cell Distribution Width 14.2 % Platelet Count 175 TH/MM3 Mean Platelet Volume 10.2 FL Neutrophils (%) (Auto) 58.6 % Lymphocytes (%) (Auto) 25.1 % Monocytes (%) (Auto) 15.1 % Eosinophils (%) (Auto) 0.9 % Basophils (%) (Auto) 0.3 % Neutrophils # (Auto) 3.4 TH/MM3 Lymphocytes # (Auto) 1.4 TH/MM3 Monocytes # (Auto) 0.9 TH/MM3 Eosinophils # (Auto) 0.1 TH/MM3 Basophils # (Auto) 0.0 TH/MM3 CBC Comment DIFF FINAL Differential Comment Activated Partial Thromboplast Time 131.9 SEC 112.7 SEC 54.7 SEC 71.4 SEC Blood Urea Nitrogen 22 MG/DL Creatinine 1.51 MG/DL Random Glucose 100 MG/DL Calcium Level 7.9 MG/DL Sodium Level 140 MEQ/L Potassium Level 3.4 MEQ/L Chloride Level 104 MEQ/L Carbon Dioxide Level 25.3 MEQ/L Anion Gap 11 MEQ/L Estimat Glomerular Filtration Rate 49 ML/MIN Magnesium Level 1.9 MG/DL Total Creatine Kinase 392 U/L Creatine Kinase MB 4.9 NG/ML Creatine Kinase MB % 1.3 % Troponin I 0.26 NG/ML Assessment and Plan Problem List: (1) NICM (nonischemic cardiomyopathy) ICD Codes: I42.8 - Other cardiomyopathies (2) Syncope ICD Codes: R55 - Syncope and collapse Status: Acute (3) Elevated troponin ICD Codes: R79.89 - Other specified abnormal findings of blood chemistry Status: Acute (4) CHF (congestive heart failure) ICD Codes: I50.9 - Heart failure, unspecified Status: Acute (5) Atrial fibrillation with rapid ventricular response ICD Codes: I48.91 - Unspecified atrial fibrillation Status: Acute (6) Chest pain ICD Codes: R07.9 - Chest pain, unspecified Status: Acute Assessment and Plan 1) Syncope Most likely a combination of things including dehydration from vomiting, his nonischemic cardiomyopathy, antihypertensive medicationsas well as orthostatic hypotension due to standing. Do not believe that his syncope was arrhythmogenic, but always a possibility 2) He came in significantly dehydrated and has since received fluid resuscitation gently due to his nonischemic cardiomyopathy. 3) Elevated troponin Relatively nonspecific as they are flat in the face of his dehydration and acute kidney injury. Plan for stress testing, part 2 tomorrow 5) NICM with EF 20% Recommended ICD previously multiple times by his paste [employer] supervisor, has refused but considering 6) Follow up with Dr. Ricardo Mazariegos upon discharge Problem Qualifiers (1) Syncope: Qualified Codes: R55 - Syncope and collapse Naldo Kaye DO Feb 05, 2018 22:15
[2018-02-06] VITALS (11 sets, daily range): BP systolic 94–136; BP diastolic 52–74; PULSE 75–126; RESP 16–20; TEMP 98.3–99.4; O2SAT 92–93
[2018-02-06 06:30] LABS: BICARBONATE 24.4 MEQ/L (21.0-32.0); CALCIUM 8.2 MG/DL (8.5-10.1); CREATININE 1.28 MG/DL (0.60-1.30); MAGNESIUM 2.1 MG/DL (1.5-2.5)
[2018-02-06] MEDS: DOCUSATE SODIUM 50 MG/SENNA 8.6 MG TAB PO SCH ×2 (08:27→21:00)
[2018-02-06] MEDS: CARVEDILOL 12.5 MG TAB PO SCH ×2 (08:27→21:22)
[2018-02-06] MEDS: SODIUM CHLORIDE 0.9% FLUSH 10 ML FLUSH IV FLUSH SCH ×2 (08:28→21:22)
[2018-02-06] MEDS ORDERED: REGADENOSON INJ 0.4 MG/5 ML SYR ONE (11:19)
--- NOTE | 2018-02-06 11:56 | PD.CARD.PN ---
Subjective Subjective Remarks No complaints, no CP/SOB/lightheadedness Second part of nuclear stress test Objective Medications Current Medications Medications (Trade) Dose Ordered Sig/Neema Route Start Time Stop Time Status Last Admin (NS Flush) 2 ml UNSCH PRN IV FLUSH 02/04/18 15:00 (NS Flush) 2 ml BID IV FLUSH 02/04/18 21:00 02/06/18 08:28 (Narcan Inj) 0.4 mg UNSCH PRN IV PUSH 02/04/18 15:00 (Heparin Inj) 5,000 units UNSCH PRN IV PUSH 02/04/18 22:15 (Heparin Inj) 2,500 units UNSCH PRN IV PUSH 02/04/18 22:15 Heparin Sodium/ Dextrose 250 ml @ 10 mls/hr TITRATE PRN IV 02/04/18 19:00 02/05/18 18:46 (Coreg) 12.5 mg Q12HR PO 02/05/18 21:00 02/06/18 08:27 (Tylenol) 650 mg Q4H PRN PO 02/05/18 14:15 (Zofran Inj) 4 mg Q6H PRN IVP 02/05/18 14:15 (Tylenol) 650 mg Q6H PRN PO 02/05/18 14:15 (Traci-Colace) 1 tab BID PO 02/05/18 21:00 (Senokot) 17.2 mg Q12H PRN PO 02/05/18 14:15 (Dulcolax Supp) 10 mg DAILY PRN RECTAL 02/05/18 14:15 (Lactulose Liq) 30 ml DAILY PRN PO 02/05/18 14:15 Vital Signs / I&O Vital Signs Date Time Temp Pulse Resp B/P (MAP) Pulse Ox O2 Delivery O2 Flow Rate FiO2 02/06/18 09:55 93 Room Air 02/06/18 09:55 102 02/06/18 08:03 98.3 84 19 136/71 (92) 93 02/06/18 04:00 98.5 84 20 94/69 (77) 92 02/06/18 04:00 97 02/06/18 00:00 98.8 81 20 101/63 (76) 92 02/06/18 00:00 101 02/05/18 20:44 106 02/05/18 20:00 99.2 92 20 143/88 (106) 94 02/05/18 16:03 99.0 107 18 129/74 (92) 94 02/05/18 15:48 107 02/05/18 12:08 98.9 92 18 139/75 (96) 94 I/O 02/05/18 02/05/18 02/05/18 02/06/18 02/06/18 02/06/18 07:00 15:00 23:00 07:00 15:00 23:00 Intake Total 240 ml 360 ml Balance 240 ml 360 ml Intake Oral 240 ml 360 ml # Voids 5 4 # Bowel Movements 1 Physical Exam GENERAL: NAD, AAOx3 SKIN: Warm and dry. HEAD: Atraumatic. Normocephalic. EYES: Pupils equal and round. No scleral icterus. No injection or drainage. ENT: No nasal bleeding or discharge. Mucous membranes pink and moist. NECK: Trachea midline. No JVD. CARDIOVASCULAR: Regular rate and rhythm. RESPIRATORY: No accessory muscle use. Clear to auscultation. Breath sounds equal bilaterally. GASTROINTESTINAL: Abdomen soft, non-tender, nondistended. Hepatic and splenic margins not palpable. MUSCULOSKELETAL: Extremities without clubbing, cyanosis, or edema. No obvious deformities. NEUROLOGICAL: Awake and alert. No obvious cranial nerve deficits. Motor grossly within normal limits. Five out of 5 muscle strength in the arms and legs. Normal speech. PSYCHIATRIC: Appropriate mood and affect; insight and judgment normal. Laboratory Laboratory Tests Test 02/06/18 04:55 Activated Partial Thromboplast Time 83.3 SEC Blood Urea Nitrogen 17 MG/DL Creatinine 1.28 MG/DL Random Glucose 86 MG/DL Calcium Level 8.2 MG/DL Magnesium Level 2.1 MG/DL Sodium Level 139 MEQ/L Potassium Level 3.7 MEQ/L Chloride Level 105 MEQ/L Carbon Dioxide Level 24.4 MEQ/L Anion Gap 10 MEQ/L Estimat Glomerular Filtration Rate 59 ML/MIN Assessment and Plan Problem List: (1) NICM (nonischemic cardiomyopathy) ICD Codes: I42.8 - Other cardiomyopathies (2) Syncope ICD Codes: R55 - Syncope and collapse Status: Acute (3) Elevated troponin ICD Codes: R79.89 - Other specified abnormal findings of blood chemistry Status: Acute (4) CHF (congestive heart failure) ICD Codes: I50.9 - Heart failure, unspecified Status: Acute (5) Atrial fibrillation with rapid ventricular response ICD Codes: I48.91 - Unspecified atrial fibrillation Status: Acute (6) Chest pain ICD Codes: R07.9 - Chest pain, unspecified Status: Acute Assessment and Plan 1) Syncope Most likely a combination of things including dehydration from vomiting, his nonischemic cardiomyopathy, antihypertensive medicationsas well as orthostatic hypotension due to standing. Do not believe that his syncope was arrhythmogenic, but always a possibility 2) He came in significantly dehydrated and has since received fluid resuscitation gently due to his nonischemic cardiomyopathy. 3) Elevated troponin Relatively nonspecific as they are flat in the face of his dehydration and acute kidney injury. 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 Ricardo Mazariegos upon discharge 7) Possible LV thrombus Echo with Definity Heparin drip Will need INR back above 2 before stopping heparin Problem Qualifiers (1) Syncope: Qualified Codes: R55 - Syncope and collapse Naldo Kaye DO Feb 06, 2018 11:56
--- NOTE | 2018-02-06 14:14 | HHI.PR ---
Subjective Remarks Follow-up cardiomyopathy and A. fib. Patient is asymptomatic. Admits noncompliance with Coumadin. Discussed with nursing and cardiology Objective Vitals Vital Signs Date Time Temp Pulse Resp B/P (MAP) Pulse Ox O2 Delivery O2 Flow Rate FiO2 02/06/18 09:55 93 Room Air 02/06/18 09:55 102 02/06/18 08:03 98.3 84 19 136/71 (92) 93 02/06/18 04:00 98.5 84 20 94/69 (77) 92 02/06/18 04:00 97 02/06/18 00:00 98.8 81 20 101/63 (76) 92 02/06/18 00:00 101 02/05/18 20:44 106 02/05/18 20:00 99.2 92 20 143/88 (106) 94 02/05/18 16:03 99.0 107 18 129/74 (92) 94 02/05/18 15:48 107 I/O 02/05/18 02/05/18 02/05/18 02/06/18 02/06/18 02/06/18 07:00 15:00 23:00 07:00 15:00 23:00 Intake Total 240 ml 360 ml Balance 240 ml 360 ml Intake Oral 240 ml 360 ml # Voids 5 4 # Bowel Movements 1 Result Diagram: 02/05/18 0123 02/06/18 0455 Imaging Last Impressions Chest X-Ray 02/04/18 1257 Signed Impressions: Service Date/Time: Sunday, February 04, 2018 13:00 - CONCLUSION: Chronically enlarged cardiac silhouette. No acute cardiopulmonary disease identified. Zion Lemos MD Lung Scan- Nuclear Medicine 02/04/18 0000 Signed Impressions: Service Date/Time: Sunday, February 04, 2018 15:38 - CONCLUSION: 1. No scintigraphic findings of pulmonary embolus. 2. Cardiomegaly. Jeremías Denis MD Head CT 02/04/18 0000 Signed Impressions: Service Date/Time: Sunday, February 04, 2018 13:40 - CONCLUSION: 1. Chronic changes with a small, old lacunar type infarct in the right frontal parietal watershed area. 2. Minimal chronic sinusitis in a posterior right ethmoid air cell. 3. Nothing acute Jeremías Denis MD Carotid Artery Ultrasound 02/04/18 0000 Signed Impressions: Service Date/Time: Sunday, February 04, 2018 16:45 - CONCLUSION: Minimal atherosclerotic plaque of both carotid bifurcations. No narrowing. Roel Maloney MD Objective Remarks GENERAL: This is a well-nourished, obese patient, in no apparent distress. SKIN: No rashes, ecchymoses or lesions. Cool and dry. CARDIOVASCULAR: Regular rate and rhythm without murmurs, gallops, or rubs. RESPIRATORY: Clear to auscultation. Breath sounds equal bilaterally. No wheezes , rales, or rhonchi. GASTROINTESTINAL: Abdomen soft, non-tender, nondistended.. No guarding. Protuberant abdomen MUSCULOSKELETAL: Extremities without clubbing, cyanosis, or edema. . No calf tenderness NEUROLOGICAL: Awake and alert. Motor and sensory grossly within normal limits. Normal speech. Procedures none A/P Problem List: (1) Syncope ICD Code: R55 - Syncope and collapse Status: Acute Assessment and Plan Syncope, multifactorial likely a combination of dehydration from vomiting, his nonischemic cardiomyopathy, antihypertensive medications as well as orthostatic hypotension due to standing. Improved with hydration. Minimally elevated troponins in the setting of acute kidney injury. Denies chest pain. Follow-up stress test today Hypotension. Reports of chronic hypertension while on antihypertensives. No recent change in medications. Possibly also with GI loss from vomiting/ dehydration/diuretics. Improved High risk for cardiac dysrhythmia. Given the patient with EF of 20%, question whether or V. tach episodes were the cause of his syncope. Patient to discuss with his splitter machine regarding AICD. He has refused AICD multiple times in the past Subtherapeutic INR with history of A. fib. Patient counseled regarding noncompliance continue IV heparin and restart Coumadin pending stress test. LV thrombus likely secondary to cardiomyopathy. Patient on anticoagulation Acute renal failure secondary to dehydration from vomiting. Improving. Continue to monitor avoid nephrotoxins DVT prophylaxis on heparin drip. We will need to restart on Coumadin based on the above findings and further workup. Discharge Planning Not ready for discharge awaiting completion of stress test Problem Qualifiers (1) Syncope: Qualified Codes: R55 - Syncope and collapse Greg Fisher MD Feb 06, 2018 14:14
[2018-02-06] MEDS ORDERED: WARFARIN SOD 10 MG TAB PO ONE (17:00)
[2018-02-06] MEDS: HEPARIN-D5W 25,000 U/250 ML 250 ML IV PRN (18:02)
[2018-02-07] VITALS (9 sets, daily range): BP systolic 120–127; BP diastolic 66–90; PULSE 83–102; RESP 16–22; TEMP 98.2–98.5; O2SAT 92–97
[2018-02-07 05:31] LABS: HEMATOCRIT 40.4 % (39.0-51.0); HEMOGLOBIN 13.6 GM/DL (13.0-17.0); INTERNATIONAL NORMALIZED RATIO 1.6 RATIO; MEAN CELL VOLUME 98.4 FL (80.0-100.0); MEAN CORPUSCULAR HEMOGLOBIN 33.2 PG (27.0-34.0); MEAN CORPUSCULAR HGB CONC 33.7 % (32.0-36.0); MEAN PLATELET VOLUME 10.9 FL (7.0-11.0); PLATELET COUNT 164 TH/MM3 (150-450); PROTHROMBIN TIME - PATIENT 16.1 SEC (9.8-11.6); RED CELL DISTRIBUTION WIDTH 14.4 % (11.6-17.2); WHITE BLOOD COUNT 5.8 TH/MM3 (4.0-11.0)
[2018-02-07] MEDS: LISINOPRIL 5 MG TAB PO SCH (08:46)
[2018-02-07] MEDS: SODIUM CHLORIDE 0.9% FLUSH 10 ML FLUSH IV FLUSH SCH ×2 (08:46→21:00)
[2018-02-07] MEDS: DOCUSATE SODIUM 50 MG/SENNA 8.6 MG TAB PO SCH ×2 (08:46→21:00)
[2018-02-07] MEDS: CARVEDILOL 12.5 MG TAB PO SCH ×2 (08:46→22:24)
--- NOTE | 2018-02-07 10:43 | HHI.PR ---
Subjective Remarks Follow-up elevated troponin. States he is doing good denies chest pain. Going for second part of stress test today. Discussed with cardiology. Objective Vitals Vital Signs Date Time Temp Pulse Resp B/P (MAP) Pulse Ox O2 Delivery O2 Flow Rate FiO2 02/07/18 08:12 98.5 99 22 124/90 (101) 97 02/07/18 08:00 96 02/07/18 05:25 98.5 83 16 127/70 (89) 92 02/07/18 03:42 84 02/06/18 23:52 99.4 89 16 104/52 (69) 93 02/06/18 23:04 97 02/06/18 21:15 98.4 107 16 117/74 (88) 93 02/06/18 20:15 126 02/06/18 20:15 Room Air 02/06/18 19:47 101 02/06/18 19:18 93 Room Air 02/06/18 19:18 115 02/06/18 16:03 98.5 75 18 120/72 (88) 93 I/O 02/06/18 02/06/18 02/06/18 02/07/18 02/07/18 02/07/18 07:00 15:00 23:00 07:00 15:00 23:00 Intake Total 600 ml 338 ml Balance 600 ml 338 ml Intake Oral 600 ml 240 ml IV Total 98 ml # Voids 3 3 # Bowel Movements 0 0 Result Diagram: 02/07/18 0430 02/06/18 0455 Imaging Last Impressions Chest X-Ray 02/04/18 1257 Signed Impressions: Service Date/Time: Sunday, February 04, 2018 13:00 - CONCLUSION: Chronically enlarged cardiac silhouette. No acute cardiopulmonary disease identified. Zion Lemos MD Lung Scan-V Nuclear Medicine 02/04/18 0000 Signed Impressions: Service Date/Time: Sunday, February 04, 2018 15:38 - CONCLUSION: 1. No scintigraphic findings of pulmonary embolus. 2. Cardiomegaly. Jeremías Denis MD Head CT 02/04/18 0000 Signed Impressions: Service Date/Time: Sunday, February 04, 2018 13:40 - CONCLUSION: 1. Chronic changes with a small, old lacunar type infarct in the right frontal parietal watershed area. 2. Minimal chronic sinusitis in a posterior right ethmoid air cell. 3. Nothing acute Jeremías Denis MD Carotid Artery Ultrasound 02/04/18 0000 Signed Impressions: Service Date/Time: Sunday, February 04, 2018 16:45 - CONCLUSION: Minimal atherosclerotic plaque of both carotid bifurcations. No narrowing. Roel Maloney MD Objective Remarks GENERAL: This is a well-nourished, obese patient, in no apparent distress. SKIN: No rashes, ecchymoses or lesions. Cool and dry. CARDIOVASCULAR: Regular rate and rhythm without murmurs, gallops, or rubs. RESPIRATORY: Clear to auscultation. Breath sounds equal bilaterally. No wheezes , rales, or rhonchi. GASTROINTESTINAL: Abdomen soft, non-tender, nondistended. No guarding. Protuberant abdomen MUSCULOSKELETAL: Extremities without clubbing, cyanosis, or edema. . No calf tenderness NEUROLOGICAL: Awake and alert. Motor and sensory grossly within normal limits. Normal speech. Procedures none A/P Problem List: (1) Syncope ICD Code: R55 - Syncope and collapse Status: Acute Assessment and Plan Syncope, multifactorial likely a combination of dehydration from vomiting, his nonischemic cardiomyopathy, antihypertensive medications as well as orthostatic hypotension due to standing. Improved with hydration. Minimally elevated troponins in the setting of acute kidney injury. Denies chest pain. Follow-up second part of stress test today Hypotension. Reports of chronic hypertension while on antihypertensives. No recent change in medications. Possibly also with GI loss from vomiting/ dehydration/diuretics. Improved High risk for cardiac dysrhythmia. Given the patient with EF of 20%, question whether or V. tach episodes were the cause of his syncope. Patient to discuss with his supervisor records change regarding AICD. He has refused AICD multiple times in the past. Uptitrate Coreg and lisinopril if tolerated Subtherapeutic INR with history of A. fib. Patient counseled regarding noncompliance continue IV heparin and restart Coumadin pending stress test. May need cardiac catheterization LV thrombus likely secondary to cardiomyopathy. Patient on anticoagulation Acute renal failure secondary to dehydration from vomiting. Improving. Continue to monitor avoid nephrotoxins DVT prophylaxis on heparin drip. We will need to restart on Coumadin based on the above findings and further workup. Discharge Planning Not ready for discharge awaiting completion of stress test and INR being therapeutic Problem Qualifiers (1) Syncope: Qualified Codes: R55 - Syncope and collapse Greg Fisher MD Feb 07, 2018 10:42
--- NOTE | 2018-02-07 11:15 | RADRPT ---
EXAM DATE/TIME: 02/06/2018 12:07 CORRECTION Corrected on: February 07, 2018; [facility] COMPARISON: CHEST SINGLE AP, February 04, 2018, 13:00. INDICATIONS : Syncope with cardiomyopathy. Atrial fibrillation. DOSE: 30.2 mCi Tc99m Myoview at stress. 31.6 mCi Tc99m Myoview at rest. 0.4 mg Lexiscan STRESS SYMPTOMS: Shortness of breath, dizzy. EJECTION FRACTION: 15% MEDICAL HISTORY : Hypertension. Atrial fibrillation. SURGICAL HISTORY : Hernia repair. ENCOUNTER: Initial ACUITY: 2 days PAIN SCALE: 0/10 LOCATION: Bilateral chest TECHNIQUE: The patient underwent pharmacologic stress with infusion of prescribed dose. Continuous ECG tracing was monitored during stress. Gated SPECT imaging was performed after stress and conventional SPECT i maging was performed at rest. The examination was performed on a SPECT/CT scanner, both attenuation and non-corrected datasets were reviewed. FINDINGS: The gated cineloop images demonstrate severe global hypokinesis with an ejection fraction of 15% sugg esting severe cardiomyopathy. Left ventricular enlargement is noted. The cardiac SPECT stress and rest images demonstrate fixed defects are noted involving the anterior w all, cardiac apex and inferior wall suggesting infarcts involving the LAD and RCA distributions. No r eversible defects are noted to suggest ischemia. CONCLUSION: 1. Severe global hypokinesis with ejection fraction of 15% suggesting severe cardiomyopathy. Clinical correlation is recommended. 2. Fixed defects involving the anterior wall, cardiac apex and inferior wall suggesting infarcts invo lving the LAD and RCA distributions. 3. No reversible defects to suggest ischemia. RISK CATEGORY: High risk (greater than 3% annual mortality rate) Chandler Bocsh MD on February 07, 2018 at 11:08 Board Certified Radiologist. This report was verified electronically. Chandler Bosch MD on February 07, 2018 at 13:00 Board Certified Radiologist. This report was verified electronically.
--- NOTE | 2018-02-07 11:27 | PD.CARD.PN ---
Subjective Subjective Remarks No complaints, no CP/SOB/lightheadedness Second part of nuclear stress test Objective Medications Current Medications Medications (Trade) Dose Ordered Sig/Neema Route Start Time Stop Time Status Last Admin (NS Flush) 2 ml UNSCH PRN IV FLUSH 02/04/18 15:00 (NS Flush) 2 ml BID IV FLUSH 02/04/18 21:00 02/07/18 08:46 (Narcan Inj) 0.4 mg UNSCH PRN IV PUSH 02/04/18 15:00 (Heparin Inj) 5,000 units UNSCH PRN IV PUSH 02/04/18 22:15 (Heparin Inj) 2,500 units UNSCH PRN IV PUSH 02/04/18 22:15 Heparin Sodium/ Dextrose 250 ml @ 10 mls/hr TITRATE PRN IV 02/04/18 19:00 02/06/18 18:02 (Coreg) 12.5 mg Q12HR PO 02/05/18 21:00 02/07/18 08:46 (Tylenol) 650 mg Q4H PRN PO 02/05/18 14:15 (Zofran Inj) 4 mg Q6H PRN IVP 02/05/18 14:15 (Tylenol) 650 mg Q6H PRN PO 02/05/18 14:15 (Traci-Colace) 1 tab BID PO 02/05/18 21:00 (Senokot) 17.2 mg Q12H PRN PO 02/05/18 14:15 (Dulcolax Supp) 10 mg DAILY PRN RECTAL 02/05/18 14:15 (Lactulose Liq) 30 ml DAILY PRN PO 02/05/18 14:15 (Prinivil) 5 mg DAILY PO 02/07/18 09:00 02/07/18 08:46 Pharmacy Profile Note 0 ml @ 0 mls/hr UNSCH OTHER 02/06/18 15:15 (Coumadin) 5 mg DAILY@1600 PO 02/07/18 16:00 Vital Signs / I&O Vital Signs Date Time Temp Pulse Resp B/P (MAP) Pulse Ox O2 Delivery O2 Flow Rate FiO2 02/07/18 08:12 98.5 99 22 124/90 (101) 97 02/07/18 08:00 97 Room Air 02/07/18 08:00 96 02/07/18 05:25 98.5 83 16 127/70 (89) 92 02/07/18 03:42 84 02/06/18 23:52 99.4 89 16 104/52 (69) 93 02/06/18 23:04 97 02/06/18 21:15 98.4 107 16 117/74 (88) 93 02/06/18 20:15 126 02/06/18 20:15 Room Air 02/06/18 19:47 101 02/06/18 19:18 93 Room Air 02/06/18 19:18 115 02/06/18 16:03 98.5 75 18 120/72 (88) 93 I/O 02/06/18 02/06/18 02/06/18 02/07/18 02/07/18 02/07/18 07:00 15:00 23:00 07:00 15:00 23:00 Intake Total 600 ml 338 ml Balance 600 ml 338 ml Intake Oral 600 ml 240 ml IV Total 98 ml # Voids 3 3 # Bowel Movements 0 0 Physical Exam GENERAL: NAD, AAOx3 SKIN: Warm and dry. HEAD: Atraumatic. Normocephalic. EYES: Pupils equal and round. No scleral icterus. No injection or drainage. ENT: No nasal bleeding or discharge. Mucous membranes pink and moist. NECK: Trachea midline. No JVD. CARDIOVASCULAR: Regular rate and rhythm. RESPIRATORY: No accessory muscle use. Clear to auscultation. Breath sounds equal bilaterally. GASTROINTESTINAL: Abdomen soft, non-tender, nondistended. Hepatic and splenic margins not palpable. MUSCULOSKELETAL: Extremities without clubbing, cyanosis, or edema. No obvious deformities. NEUROLOGICAL: Awake and alert. No obvious cranial nerve deficits. Motor grossly within normal limits. Five out of 5 muscle strength in the arms and legs. Normal speech. PSYCHIATRIC: Appropriate mood and affect; insight and judgment normal. Laboratory Laboratory Tests Test 02/06/18 15:31 02/06/18 22:02 02/07/18 04:30 Activated Partial Thromboplast Time 49.2 SEC 52.7 SEC 49.9 SEC White Blood Count 5.8 TH/MM3 Red Blood Count 4.10 MIL/MM3 Hemoglobin 13.6 GM/DL Hematocrit 40.4 % Mean Corpuscular Volume 98.4 FL Mean Corpuscular Hemoglobin 33.2 PG Mean Corpuscular Hemoglobin Concent 33.7 % Red Cell Distribution Width 14.4 % Platelet Count 164 TH/MM3 Mean Platelet Volume 10.9 FL Prothrombin Time 16.1 SEC Prothromb Time International Ratio 1.6 RATIO Assessment and Plan Problem List: (1) NICM (nonischemic cardiomyopathy) ICD Codes: I42.8 - Other cardiomyopathies (2) Syncope ICD Codes: R55 - Syncope and collapse Status: Acute (3) Elevated troponin ICD Codes: R79.89 - Other specified abnormal findings of blood chemistry Status: Acute (4) CHF (congestive heart failure) ICD Codes: I50.9 - Heart failure, unspecified Status: Acute (5) Atrial fibrillation with rapid ventricular response ICD Codes: I48.91 - Unspecified atrial fibrillation Status: Acute (6) Chest pain ICD Codes: R07.9 - Chest pain, unspecified Status: Acute Assessment and Plan 1) Syncope Most likely a combination of things including dehydration from vomiting, his nonischemic cardiomyopathy, antihypertensive medicationsas well as orthostatic hypotension due to standing. Do not believe that his syncope was arrhythmogenic, but always a possibility 2) He came in significantly dehydrated and has since received fluid resuscitation gently due to his nonischemic cardiomyopathy. 3) Elevated troponin Relatively nonspecific as they are flat in the face of his dehydration and acute kidney injury. Nuclear stress test showing no ischemia 5) NICM with EF 20% Recommended ICD previously multiple times by his linotype mechanic, has refused but considering 6) Follow up with Dr. Ricardo Mazariegos upon discharge 7) Possible LV thrombus Echo with Definity showing no thrombus, most likely artifact or false chord noted Would continue heparin drip until INR 2 Discussed compliance with medications Problem Qualifiers (1) Syncope: Qualified Codes: R55 - Syncope and collapse Naldo Kaye DO Feb 07, 2018 11:27
[2018-02-07] MEDS ORDERED: WARFARIN SOD 5 MG TAB PO SCH (16:00)
[2018-02-07] MEDS ORDERED: POTASSIUM CHLORIDE 20 MEQ CONTROLLED RELEASE TAB PO ONE (18:00)
--- NOTE | 2018-02-07 18:46 | ECHRPT ---
Indication: R/O CLOT, DEFINITY STUDY CONCLUSIONS The left ventricular systolic function is severely reduced with an estimated ejection fraction less than 20%. Contrast enhanced echocardiography was utilized for improved endocardial border definition. No thrombus noted at the apex (most likely artifact on previous study, although he does have a false chord which is a benign finding). BP: 127 / 70 HR: 83 Rhythm: Atrial fibrillation Technical Quality:Fair FINDINGS LEFT VENTRICLE The left ventricular systolic function is severely reduced with an estimated ejection fraction less than 20%. Contrast enhanced echocardiography was utilized for improved endocardial border definition. No thrombus noted at the apex (most likely artifact, although he does have a false chord which is a benign finding) Naldo Kaye DO (Electronically Signed) Final Date:07 February 2018 18:45
[2018-02-08] VITALS: BP 98/63; PULSE 79; PULSE 83; RESP 18; TEMP 98.1; O2SAT 94
[2018-02-08 04:00] VITALS: BP 98/66; PULSE 74; PULSE 82; RESP 18; TEMP 97.7; O2SAT 95
[2018-02-08 05:00] LABS: INTERNATIONAL NORMALIZED RATIO 2.2 RATIO; PROTHROMBIN TIME - PATIENT 22.7 SEC (9.8-11.6)
[2018-02-08 05:16] LABS: BICARBONATE 26.2 MEQ/L (21.0-32.0); CALCIUM 7.9 MG/DL (8.5-10.1); CREATININE 1.17 MG/DL (0.60-1.30); MAGNESIUM 2.3 MG/DL (1.5-2.5)
[2018-02-08] MEDS ORDERED: COUM5TAB PO (07:47)
[2018-02-08] MEDS ORDERED: CARV12.5 PO (07:47)
[2018-02-08] MEDS ORDERED: LISI-519 PO (07:47)
--- NOTE | 2018-02-08 07:47 | HHI.DCPOC ---
Discharge Care Plan Diagnosis: (1) CHF (congestive heart failure) (2) Syncope Your Health Problems Are: Difficulty with ADL Exercise Tolerance Goals to Promote Your Health * To prevent worsening of your condition and complications * To maintain your health at the optimal level Directions to Meet Your Goals Take your medications as prescribed Follow your dietary instruction Follow activity as directed Keep your appointments as scheduled Take your immunizations and boosters as scheduled If your symptoms worsen call your PCP, if no PCP go to Urgent Care Center or Emergency Room Smoking is Dangerous to Your Health. Avoid second hand smoke Call the 24-hour hour crisis hotline for domestic abuse at Greg Fisher MD Feb 08, 2018 07:47
[2018-02-08 08:00] VITALS: PULSE 80
[2018-02-08 08:12] VITALS: BP 111/78; PULSE 67; RESP 19; TEMP 97.7; O2SAT 93
[2018-02-08] MEDS: CARVEDILOL 12.5 MG TAB PO SCH (08:58)
[2018-02-08] MEDS: SODIUM CHLORIDE 0.9% FLUSH 10 ML FLUSH IV FLUSH SCH (08:58)
[2018-02-08] MEDS: LISINOPRIL 5 MG TAB PO SCH (08:58)
[2018-02-08] MEDS: DOCUSATE SODIUM 50 MG/SENNA 8.6 MG TAB PO SCH (08:58)
--- NOTE | 2018-02-08 10:55 | HHI.PR ---
Subjective Remarks F/U HF and Fib. INR therapeutic no bleeding . States he will f/u with cardiology dw RN Objective Vitals Vital Signs Date Time Temp Pulse Resp B/P (MAP) Pulse Ox O2 Delivery O2 Flow Rate FiO2 02/08/18 08:00 Room Air 02/08/18 08:00 80 02/08/18 04:00 74 02/08/18 04:00 97.7 82 18 98/66 (77) 95 02/08/18 04:00 Room Air 02/08/18 00:00 98.1 79 18 98/63 (75) 94 02/08/18 00:00 83 02/08/18 00:00 Room Air 02/07/18 20:00 Room Air 02/07/18 20:00 98.2 98 20 127/71 (89) 94 02/07/18 20:00 102 02/07/18 17:59 100 02/07/18 17:59 94 Room Air 02/07/18 16:12 98.4 90 22 122/68 (86) 96 02/07/18 14:52 94 Room Air 02/07/18 14:52 90 02/07/18 12:12 98.3 91 22 120/66 (84) 94 I/O 02/07/18 02/07/18 02/07/18 02/08/18 02/08/18 02/08/18 07:00 15:00 23:00 07:00 15:00 23:00 Intake Total 338 ml 420 ml 836 ml Balance 338 ml 420 ml 836 ml Intake Oral 240 ml 420 ml 640 ml IV Total 98 ml 196 ml # Voids 3 4 2 # Bowel Movements 0 1 0 Result Diagram: 02/07/18 0430 02/08/18 0430 Imaging Last Impressions Myocardial Perfusion Scan Nuc Med 02/06/18 0000 Signed Impressions: Service Date/Time: January 12:07 - CONCLUSION: 1. Severe global hypokinesis with ejection fraction of 15%% suggesting severe cardiomyopathy. Clinical correlation is recommended. 2. Fixed defects involving the anterior wall, cardiac apex and inferior wall suggesting infarcts involving the LAD and RCA distributions. 3. No reversible defects to suggest ischemia. RISK CATEGORY: High risk (greater than 3%% annual mortality rate) Chandler Bosch MD Chest X-Ray 4/24/18 1257 Signed Impressions: Service Date/Time: Sunday, February 04, 2018 13:00 - CONCLUSION: Chronically enlarged cardiac silhouette. No acute cardiopulmonary disease identified. Zion Lemos MD Lung Scan-V Nuclear Medicine 02/04/18 0000 Signed Impressions: Service Date/Time: Sunday, February 04, 2018 15:38 - CONCLUSION: 1. No scintigraphic findings of pulmonary embolus. 2. Cardiomegaly. Jeremías Denis MD Head CT 02/04/18 0000 Signed Impressions: Service Date/Time: Sunday, February 04, 2018 13:40 - CONCLUSION: 1. Chronic changes with a small, old lacunar type infarct in the right frontal parietal watershed area. 2. Minimal chronic sinusitis in a posterior right ethmoid air cell. 3. Nothing acute Jeremías eDnis MD Carotid Artery Ultrasound 02/04/18 0000 Signed Impressions: Service Date/Time: Sunday, February 04, 2018 16:45 - CONCLUSION: Minimal atherosclerotic plaque of both carotid bifurcations. No narrowing. Roel Maloney MD Objective Remarks GENERAL: This is a well-nourished, obese patient, in no apparent distress. SKIN: No rashes, ecchymoses or lesions. Cool and dry. CARDIOVASCULAR: Regular rate and rhythm without murmurs, gallops, or rubs. RESPIRATORY: Clear to auscultation. Breath sounds equal bilaterally. No wheezes , rales, or rhonchi. GASTROINTESTINAL: Abdomen soft, non-tender, nondistended. No guarding. Protuberant abdomen MUSCULOSKELETAL: Extremities without clubbing, cyanosis, or edema. . No calf tenderness NEUROLOGICAL: Awake and alert. Motor and sensory grossly within normal limits. Normal speech. Procedures none A/P Problem List: (1) Syncope ICD Code: R55 - Syncope and collapse Status: Acute Assessment and Plan Syncope, multifactorial likely a combination of dehydration from vomiting, his nonischemic cardiomyopathy, antihypertensive medications as well as orthostatic hypotension due to standing. Improved with hydration. Minimally elevated troponins in the setting of acute kidney injury. Denies chest pain. No ischemia on stress test Hypotension. Reports of chronic hypertension while on antihypertensives. No recent change in medications. Possibly also with GI loss from vomiting/ dehydration/diuretics. Improved High risk for cardiac dysrhythmia. Given the patient with EF of 20%, question whether or V. tach episodes were the cause of his syncope. Patient to discuss with his babbitter regarding AICD. He has refused AICD multiple times in the past. Uptitrate Coreg and lisinopril if tolerated Subtherapeutic INR with history of A. fib. Patient counseled regarding noncompliance. INR 2.[address] dc [address] heparin and ct Coumadin pending stress test. Possible LV thrombus likely secondary to cardiomyopathy. Not seen on repeat ECHO(definity study) Patient on anticoagulation Acute renal failure secondary to dehydration from vomiting. Improving. Continue to monitor avoid nephrotoxins DVT prophylaxis Discharge Planning stable for dc Problem Qualifiers (1) Syncope: Qualified Codes: R55 - Syncope and collapse Greg Fisher MD Feb 08, 2018 10:55
--- NOTE | 2018-02-08 13:19 | HHI.DS ---
Discharge Summary Admission Date Feb 04, 2018 at 16:44 Discharge Date: Feb 08, 2018 Admitting Diagnosis acute syncope, positive troponin (1) Syncope ICD Code: R55 - Syncope and collapse Diagnosis: Principal Status: Acute Procedures none Brief History - From Admission History from patient, ER PA communication, and review of medical records woke up this am with no problems drove himself here from [facility] to see his friend denies any symptomswhile driving arrived to friends' [employer] parking store- around 1100a.m. he then sat down at table and talking to friend then got up to get a bottle of water, took about 4 steps, got dizzy, and wanted to sit back down, walked back to table, and sat back down, had soda pop and took a sip and thats the last thing he remembered before he got up lying on concrete. this is first time he ever passed out friend came right away then called 911 stated he was aaox4 by the time friend got there, at least 10min before ems, he was back to self denies incontinence little nauseous last few days vomiting a little bit past 2 days , about once or twice, no blood in it no abdominal pains no chest pains or sob on bp meds at home here 91/56 does not really measure regularly, generally 85-90/65 is normal severe cardiomyopathy- EF 20-25% a year ago on echo CBC/BMP: 02/07/18 0430 02/08/18 0430 Significant Findings Laboratory Tests Test 02/06/18 04:55 02/06/18 15:31 02/06/18 22:02 02/07/18 04:30 Activated Partial Thromboplast Time 83.3 SEC (24.3-30.1) 49.2 SEC (24.3-30.1) 52.7 SEC (24.3-30.1) 49.9 SEC (24.3-30.1) Calcium Level 8.2 MG/DL (8.5-10.1) Estimat Glomerular Filtration Rate 59 ML/MIN (>89) Red Blood Count 4.10 MIL/MM3 (4.50-5.90) Prothrombin Time 16.1 SEC (9.8-11.6) Test 02/08/18 04:30 Prothrombin Time 22.7 SEC (9.8-11.6) Activated Partial Thromboplast Time 54.6 SEC (24.3-30.1) Calcium Level 7.9 MG/DL (8.5-10.1) Chloride Level 108 MEQ/L (98-107) Estimat Glomerular Filtration Rate 65 ML/MIN (>89) Imaging Last Impressions Myocardial Perfusion Scan Nuc Med 02/06/18 0000 Signed Impressions: Service Date/Time: January 12:07 - CONCLUSION: 1. Severe global hypokinesis with ejection fraction of 15%% suggesting severe cardiomyopathy. Clinical correlation is recommended. 2. Fixed defects involving the anterior wall, cardiac apex and inferior wall suggesting infarcts involving the LAD and RCA distributions. 3. No reversible defects to suggest ischemia. RISK CATEGORY: High risk (greater than 3%% annual mortality rate) Chandler Bosch MD Chest X-Ray 02/04/18 1257 Signed Impressions: Service Date/Time: Sunday, February 04, 2018 13:00 - CONCLUSION: Chronically enlarged cardiac silhouette. No acute cardiopulmonary disease identified. Zion Lemos MD Lung Scan- Nuclear Medicine 02/04/18 0000 Signed Impressions: Service Date/Time: Sunday, February 04, 2018 15:38 - CONCLUSION: 1. No scintigraphic findings of pulmonary embolus. 2. Cardiomegaly. Jeremías Denis MD Head CT 02/04/18 0000 Signed Impressions: Service Date/Time: Sunday, February 04, 2018 13:40 - CONCLUSION: 1. Chronic changes with a small, old lacunar type infarct in the right frontal parietal watershed area. 2. Minimal chronic sinusitis in a posterior right ethmoid air cell. 3. Nothing acute Jeremías Denis MD Carotid Artery Ultrasound 02/04/18 0000 Signed Impressions: Service Date/Time: Sunday, February 04, 2018 16:45 - CONCLUSION: Minimal atherosclerotic plaque of both carotid bifurcations. No narrowing. Roel Maloney MD PE at Discharge GENERAL: This is a well-nourished, obese patient, in no apparent distress. SKIN: No rashes, ecchymoses or lesions. Cool and dry. CARDIOVASCULAR: Regular rate and rhythm without murmurs, gallops, or rubs. RESPIRATORY: Clear to auscultation. Breath sounds equal bilaterally. No wheezes , rales, or rhonchi. GASTROINTESTINAL: Abdomen soft, non-tender, nondistended. No guarding. Protuberant abdomen MUSCULOSKELETAL: Extremities without clubbing, cyanosis, or edema. . No calf tenderness NEUROLOGICAL: Awake and alert. Motor and sensory grossly within normal limits. Normal speech. Hospital Course Syncope, multifactorial likely a combination of dehydration from vomiting, his nonischemic cardiomyopathy, antihypertensive medications as well as orthostatic hypotension due to standing. Improved with hydration. Minimally elevated troponins in the setting of acute kidney injury. Denies chest pain. No ischemia on stress test Hypotension. Reports of chronic hypertension while on antihypertensives. No recent change in medications. Possibly also with GI loss from vomiting/ dehydration/diuretics. Improved High risk for cardiac dysrhythmia. Given the patient with EF of 20%, question whether or V. tach episodes were the cause of his syncope. Patient to discuss with his twisthand regarding AICD. He has refused AICD multiple times in the past. Uptitrate Coreg and lisinopril if tolerated Subtherapeutic INR with history of A. fib. Patient counseled regarding noncompliance. INR 2.[address] dc [address] Coumadin pending stress test. Possible LV thrombus likely secondary to cardiomyopathy. Not seen on repeat ECHO(definity study) Patient on anticoagulation Acute renal failure secondary to dehydration from vomiting. Improving. Continue to monitor avoid nephrotoxins DVT prophylaxis Pt Condition on Discharge: Stable Discharge Disposition: Discharge Home Discharge Time: > 30 minutes Discharge Instructions DIET: Follow Instructions for: Heart Healthy Diet Activities you can perform: Regular-No Restrictions Activities to Avoid: Driving Follow up Referrals: Cardiology - 1 Week Cardiology @ PCP Follow-up - 1 Week PCP Follow-up @ New Orders: PT/INR New Medications: Carvedilol (Coreg) 12.5 Mg Tab 12.5 MG PO Q12HR for Prevent Heart Failure, #60 TAB Lisinopril (Lisinopril) 5 Mg Tab 5 MG PO DAILY for Prevent Heart Failure, #30 TAB Warfarin (Coumadin) 5 Mg Tab 5 MG PO DAILY@1600 for Prevent Blood Clot, #30 TAB Greg Fisher MD Feb 08, 2018 13:19
== END 2018-02-08 11:50 | disposition home or self-care (01) | DRG 292 ==
LOC: NEPE 12:43 → NEDA 15:15 → OBSVTOIN 16:44 → N04A 17:35
PROVIDERS: ADMIT Internal Medicine; ATTEND Internal Medicine
DX: I50.9 Heart failure, unspecified (principal); N17.9 Acute kidney failure, unspecified; E86.0 Dehydration; I42.8 Other cardiomyopathies; I23.6 Thrombosis of atrium, auricular appendage, and ventricle as current complications following acute myocardial infarction; R55 Syncope and collapse; I48.2 Chronic atrial fibrillation; E66.9 Obesity, unspecified; I25.10 Atherosclerotic heart disease of native coronary artery without angina pectoris; I11.0 Hypertensive heart disease with heart failure; I44.7 Left bundle-branch block, unspecified; R74.8 Abnormal levels of other serum enzymes; T50.905A Adverse effect of unspecified drugs, medicaments and biological substances, initial encounter; R11.2 Nausea with vomiting, unspecified; F17.290 Nicotine dependence, other tobacco product, uncomplicated; R07.9 Chest pain, unspecified; I95.1 Orthostatic hypotension; Z86.73 Personal history of transient ischemic attack (TIA), and cerebral infarction without residual deficits; Z79.01 Long term (current) use of anticoagulants; Z91.14 Patient's other noncompliance with medication regimen; Z68.33 Body mass index [BMI] 33.0-33.9, adult
CPT/HCPCS: 70450; 71045; 78452; 78582; 80048; 80053; 81001; 82550; 82552; 83605; 83690; 83735; 84443; 84484; 85025; 85027; 85610; 85730; 87040; 93005; 93017; 93306; 93308; 93880; 96360; A9502; A9540; A9567; J1644; J2785; J7030